=== PATIENT | female | born 1965 | race Caucasian/White ===

== ENCOUNTER 2018-04-28 13:29 | Emergency (ER) | payer MEDICARE, MEDICAID ==
[2018-04-28 14:19] VITALS: BP 145/64
--- NOTE | 2018-04-28 16:51 | EDM.PDOC ---
ED HPI GENERAL MEDICAL PROBLEM - General Chief Complaint: Neuro Symptoms/Deficits Stated Complaint: SEEING PEOPLE WHO ARE NOT THERE Time Seen by Provider: 04/28/18 14:34 Source of Information: Reports: Family History Limitations: Reports: No Limitations - History of Present Illness INITIAL COMMENTS - FREE TEXT/NARRATIVE: This lady is brought in by her sister. She lives at [facility]. Yesterday she was seeing people on the stairway who were not there. This is happened a couple of times in the past. She seemed a little bit disoriented this morning. Since she has had several brief episodes where she seemed confused area she's previously had head CTs. She's had good oral intake has been no fever. Her sister wonders if maybe she might have a UTI. She also wonders if this could be something like a TIA. There hasn't been any kind of weakness numbness facial drooping and slurred speech or anything of that nature. Left Knee Pain Score (Numeric/FACES): 5 - Related Data Allergies Allergy/AdvReac Type Severity Reaction Status Date / Time Penicillins Allergy Hives Verified 04/28/18 13:55 Home Meds: Home Meds Cetirizine [ZyrTEC] 10 mg PO DAILY 04/28/18 [History] Fluticasone Propionate 2 spray NS DAILY 04/28/18 [History] Krill Oil 500 mg PO BID 04/28/18 [History] Levothyroxine [Sythroid] 100 mcg PO DAILY 04/28/18 [History] Montelukast [Singulair] 10 mg PO DAILY 04/28/18 [History] Past Medical History HEENT History: Reports: Impaired Vision Genitourinary History: Reports: None Musculoskeletal History: Reports: Arthritis Neurological History: Reports: TIA Psychiatric History: Reports: Anxiety Endocrine/Metabolic History: Reports: Hypothyroidism, Obesity/BMI 30+ - Infectious Disease History Infectious Disease History: Reports: Chicken Pox - Past Surgical History Head Surgeries/Procedures: Reports: None HEENT Surgical History: Reports: Adenoidectomy, Tonsillectomy, Other (See Below) Other HEENT Surgeries/Procedures: ear surgery Female Surgical History: Reports: D&C Endocrine Surgical History: Reports: None Neurological Surgical History: Reports: None Musculoskeletal Surgical History: Reports: None Dermatological Surgical History: Reports: None Social & Family History - Tobacco Use Smoking Status *Q: Never Smoker Second Hand Smoke Exposure: No - Caffeine Use Caffeine Use: Reports: Coffee, Soda - Recreational Drug Use Recreational Drug Use: No ED ROS GENERAL - Review of Systems Review Of Systems: See Below Constitutional: Reports: No Symptoms HEENT: Reports: No Symptoms Respiratory: Reports: No Symptoms Cardiovascular: Reports: No Symptoms Endocrine: Reports: No Symptoms GI/Abdominal: Reports: No Symptoms : Reports: No Symptoms Musculoskeletal: Reports: No Symptoms Skin: Reports: No Symptoms Neurological: Reports: Other (See history of present illness) Psychiatric: Reports: No Symptoms ED EXAM, NEURO - Physical Exam Exam: See Below Exam Limited By: No Limitations General Appearance: Alert, No Apparent Distress (This lady is happy and smiling. She seems like she might have some mild mental retardation or developmental delay. She likes to talk.) Eye Exam: Bilateral Eye: EOMI, PERRL Ears: Other (A hearing aid on the left and there is a lot of dried cerumen in the ear. Both canals are narrowed) Nose: Normal Inspection Throat/Mouth: Normal Oropharynx Head Exam: Atraumatic Neck: Normal Inspection Respiratory/Chest: Lungs Clear Cardiovascular: Regular Rate, Rhythm GI/Abdominal: Non-Tender Neurological: Alert, Normal Mood/Affect, CN II-XII Intact, No Motor/Sensory Deficits, Other (Happy smiling and talkative. No confusion noted) Extremities: Normal Inspection Psychiatric: Normal Affect Skin Exam: Warm, Dry Course - Vital Signs Last Recorded V/S: Last Vital Signs Temp 35.8 C 04/28/18 13:48 Pulse 65 04/28/18 13:48 Resp 16 04/28/18 13:48 BP 145/64 H 04/28/18 13:48 Pulse Ox 100 04/28/18 13:48 - Orders/Labs/Meds Labs: Laboratory Tests 04/28/18 04/28/18 04/28/18 Range/Units 15:03 15:03 15:07 WBC 4.2 L (4.5-11.0) K/uL RBC 4.32 (3.30-5.50) M/uL Hgb 14.1 (12.0-15.0) g/dL Hct 41.8 (36.0-48.0) % MCV 97 (80-98) fL MCH 33 H (27-31) pg MCHC 34 (32-36) % Plt Count 304 (150-400) K/uL Neut % (Auto) 55 (36-66) % Lymph % (Auto) 31 (24-44) % Davison % (Auto) 11 H (2-6) % Eos % (Auto) 2 (2-4) % Baso % (Auto) 1 (0-1) % Sodium 140 (140-148) mmol/L Potassium 3.9 (3.6-5.2) mmol/L Chloride 104 (100-108) mmol/L Carbon Dioxide 28 (21-32) mmol/L Anion Gap 8.3 (5.0-14.0) mmol/L BUN 15 (7-18) mg/dL Creatinine 0.8 (0.6-1.0) mg/dL Est Cr Clr Drug Dosing 57.74 mL/min Estimated GFR (MDRD) > 60 (>60) Glucose 88 (74-106) mg/dL Calcium 8.9 (8.5-10.1) mg/dL Total Bilirubin 0.3 (0.2-1.0) mg/dL AST 21 (15-37) U/L ALT 34 (12-78) U/L Alkaline Phosphatase 69 (46-116) U/L Total Protein 6.7 (6.4-8.2) g/dL Albumin 3.3 L (3.4-5.0) g/dL Globulin 3.4 (2.3-3.5) g/dL Albumin/Globulin Ratio 1.0 L (1.2-2.2) Urine Color Yellow Urine Appearance Slightly cloudy Urine pH 7.0 (4.5-8.0) Ur Specific [place] 1.010 (1.008-1.030) Urine Protein Negative (NEGATIVE) mg/dL Urine Glucose (UA) Normal (NEGATIVE) mg/dL Urine Ketones Negative (NEGATIVE) mg/dL Urine Occult Blood Negative (NEGATIVE) Urine Nitrite Negative (NEGATIVE) Urine Bilirubin Negative (NEGATIVE) Urine Urobilinogen Normal (NORMAL) mg/dL Ur Leukocyte Esterase Moderate (NEGATIVE) Urine RBC 0-5 (0-5) Urine WBC 0-5 (0-5) Ur Epithelial Cells Not seen Amorphous Sediment Not seen Urine Bacteria Rare Urine Mucus Not seen - Re-Assessments/Exams Free Text/Narrative Re-Assessment/Exam: 04/28/18 16:50 All labs were noted. At this point I don't think any imaging is warranted. if she continues to hav sympoms then she should folow-up wih her dcto and maybe an MRI might be considered. Departure - Departure Time of Disposition: 16:51 Disposition: Home, Self-Care 01 Condition: Fair Clinical Impression: Confusion, hx of, without neuro findings - Discharge Information Referrals: Walt La MD [Primary Care Provider] - Additional Instructions: Continue all her usual medications. She should follow-up with her regular doctor early this coming week. If she continues to have these episodes her doctor decide to do further testing such as an MRI. No imaging of her brain was indicated in the emergency department.
== END 2018-04-28 16:59 | disposition home or self-care (01) ==
LOC: JP.ED 13:29
DX: R41.0 Disorientation, unspecified (principal); E03.9 Hypothyroidism, unspecified; F41.9 Anxiety disorder, unspecified; Z79.899 Other long term (current) drug therapy; Z88.0 Allergy status to penicillin
CPT/HCPCS: 36415; 80053; 81001; 85025; 99284

== ENCOUNTER 2019-01-06 12:33 | Inpatient (IN) | payer MEDICARE, MEDICAID ==
[2019-01-06] MEDS ORDERED: Sodium Chloride 0.9% 10 ML Syringe FLUSH PRN ×2 (13:06→14:45)
[2019-01-06] MEDS ORDERED: Ondansetron 4 MG Tab.DIS PO ONE (13:10)
--- NOTE | 2019-01-06 13:12 | EDM.PDOC ---
ED HPI GENERAL MEDICAL PROBLEM - General Chief Complaint: Respiratory Problem Stated Complaint: chest cold Time Seen by Provider: 01/06/19 12:55 Source of Information: Reports: Patient, RN, Other (staff from assisted) History Limitations: Reports: No Limitations, Other (Down's syndrome) - History of Present Illness INITIAL COMMENTS - FREE TEXT/NARRATIVE: 53 yo female from a local assisted was brought in for a cough associated with a couple episodes of syncope. Got her flu shot this past Monday. She developed a fever on that has recently gone away, but has passed out a couple of times recently when she goes from lying to either sitting or standing. Has vomited a couple of times with and without coughing. No diarrhea. No bloody emesis. Onset: Gradual Onset Date: 01/03/19 Duration: Day(s):, Waxing/Waning Location: Reports: Chest, Abdomen (some reported abdominal pain ? due to coughing) Quality: Reports: Dull Severity: Mild Improves with: Reports: Other (uncertain) Worsens with: Reports: Other (syncope with getting up.) Context: Reports: Other (see HPI) Associated Symptoms: Reports: Cough, Fever/Chills (now improved), Nausea/ Vomiting, Syncope. Denies: Headaches, Rash Treatments PRODUCT DEVELOPMENT CONSULTANT: Reports: Other (see below) (none) Abdomen Pain Score (Numeric/FACES): 4 - Related Data Allergies Allergy/AdvReac Type Severity Reaction Status Date / Time Penicillins Allergy Hives Verified 01/06/19 12:53 Home Meds: Home Meds Cetirizine [ZyrTEC] 10 mg PO DAILY 04/28/18 [History] Fluticasone Propionate 2 spray NS DAILY 04/28/18 [History] Krill Oil 500 mg PO BID 04/28/18 [History] Levothyroxine [Sythroid] 100 mcg PO DAILY 04/28/18 [History] Montelukast [Singulair] 10 mg PO DAILY 04/28/18 [History] Albuterol Sulfate [Proair Hfa] 2 puff IH QID 01/06/19 [History] Ascorbic Acid 500 mg PO BID 01/06/19 [History] Calc/D3/Mag/Zn/Educational Manager/Chandler/Oxly [Calcium 600 MG Plus Vit D] 1 tab PO BID 01/06/19 [History] Diclofenac Sodium [Voltaren] 100 gm TP ASDIRECTED 01/06/19 [History] Ibuprofen [Advil] 200 mg PO Q6HR PRN 01/06/19 [History] Magnesium Amino Acid Chelate [Magnesium] 84 mg PO BID 01/06/19 [History] Mineral Oil [Mineral Oil Heavy] 1 ml MC ASDIRECTED 01/06/19 [History] Multivit &Minerals/Ferrous Fum [Multivitamin Liquid] 1 tab-cap PO DAILY [History] Nystatin [Nystatin Crm] 1 appful TOP BID 01/06/19 [History] Triamcinolone Acetonide [Triamcinolone Acetonide 0.1% Crm] 1 dose TOP BID [History] diazePAM [Valium] 5 mg PO ASDIRECTED PRN 01/06/19 [History] Past Medical History HEENT History: Reports: Impaired Vision Gastrointestinal History: Reports: Chronic Constipation Genitourinary History: Reports: Urinary Incontinence Musculoskeletal History: Reports: Arthritis Neurological History: Reports: TIA Psychiatric History: Reports: Anxiety Endocrine/Metabolic History: Reports: Hypothyroidism - Infectious Disease History Infectious Disease History: Reports: Chicken Pox - Past Surgical History Head Surgeries/Procedures: Reports: None HEENT Surgical History: Reports: Adenoidectomy, Tonsillectomy, Other (See Below) Other HEENT Surgeries/Procedures: ear surgery GI Surgical History: Reports: None Female Surgical History: Reports: D&C Endocrine Surgical History: Reports: None Neurological Surgical History: Reports: None Musculoskeletal Surgical History: Reports: None Dermatological Surgical History: Reports: None Social & Family History - Tobacco Use Smoking Status *Q: Never Smoker Second Hand Smoke Exposure: No - Caffeine Use Caffeine Use: Reports: Coffee, Soda, Tea - Recreational Drug Use Recreational Drug Use: No ED ROS GENERAL - Review of Systems Review Of Systems: See Below Constitutional: Reports: Fever (now improved), Malaise HEENT: Reports: No Symptoms Respiratory: Reports: Shortness of Breath, Cough, Sputum (at times). Denies: Wheezing, Hemoptysis Cardiovascular: Reports: Dyspnea on Exertion, Lightheadedness (a times) GI/Abdominal: Reports: Abdominal Pain (intermittent), Nausea, Vomiting. Denies : Anorexia, Black Stool, Bloody Stool, Constipation, Diarrhea, Distension, Flatus, Hematemesis, Hematochezia, Melena : Reports: No Symptoms Musculoskeletal: Reports: No Symptoms Skin: Reports: No Symptoms Neurological: Reports: No Symptoms Psychiatric: Reports: No Symptoms ED EXAM, GENERAL - Physical Exam Exam: See Below Exam Limited By: No Limitations General Appearance: Alert, WD/WN, No Apparent Distress Eye Exam: Bilateral Eye: Normal Inspection Ears: Normal External Exam, Normal Canal, Hearing Grossly Normal, Normal TMs Ear Exam: Bilateral Ear: Auricle Normal, Canal Normal, TM normal Nose: Normal Inspection, No Blood Throat/Mouth: Normal Inspection, Normal Lips, Normal Oropharynx, Normal Voice, No Airway Compromise Head: Atraumatic, Normocephalic Neck: Normal Inspection Respiratory/Chest: No Respiratory Distress, Lungs Clear, Normal Breath Sounds, No Accessory Muscle Use Cardiovascular: Regular Rate, Rhythm, No Edema GI/Abdominal: Normal Bowel Sounds, Soft, Non-Tender, No Distention Back Exam: Normal Inspection. No: CVA Tenderness (R), CVA Tenderness (L) Extremities: Normal Inspection, Normal Range of Motion, Non-Tender, No Pedal Edema Neurological: Alert, Oriented, CN II-XII Intact, Normal Cognition, No Motor/ Sensory Deficits Psychiatric: Normal Affect, Normal Mood Skin Exam: Warm, Dry, Intact, Normal Color, No Rash Course - Vital Signs Text/Narrative:: Dr. Chapman called @ 1345h Last Recorded V/S: Last Vital Signs Temp 37.2 C 01/06/19 12:54 Pulse 75 01/06/19 12:54 Resp 23 H 01/06/19 12:54 BP 101/53 L 01/06/19 12:54 Pulse Ox 92 L 01/06/19 12:54 - Orders/Labs/Meds Orders: Active Orders 24 hr Category Date Time Status Chest 2V [CR] Stat Exams 01/06/19 13:06 Taken CULTURE BLOOD [BC] Stat Lab 01/06/19 13:42 Ordered CULTURE BLOOD [BC] Stat Lab 01/06/19 13:43 Ordered UA W/MICROSCOPIC [URIN] Stat Lab 01/06/19 13:06 Ordered Lactated Ringers [Ringers, Lactated] 1,000 ml Med 01/06/19 13:34 Active IV BOLUS Sodium Chloride 0.9% [Saline Flush] Med 01/06/19 13:06 Active 10 ml FLUSH ASDIRECTED PRN cefTRIAXone [Rocephin] 1 gm Med 01/06/19 13:48 Ordered Sodium Chloride 0.9% [Normal Saline] 50 ml IV ONETIME Saline Lock Insert [OM.PC] Routine Oth 01/06/19 13:06 Ordered Medication Orders Lactated Ringer's (Ringers, Lactated) 1,000 mls @ 1,000 mls/hr IV BOLUS ONE Stop: 01/06/19 14:33 Last Admin: 01/06/19 13:44 Dose: 1,000 mls/hr Sodium Chloride (Saline Flush) 10 ml FLUSH ASDIRECTED PRN PRN Reason: Keep Vein Open Last Admin: 01/06/19 13:16 Dose: 10 ml Labs: Laboratory Tests 01/06/19 01/06/19 Range/Units 13:14 13:14 WBC 11.7 H (4.5-11.0) K/uL RBC 4.03 (3.30-5.50) M/uL Hgb 13.0 (12.0-15.0) g/dL Hct 39.0 (36.0-48.0) % MCV 97 (80-98) fL MCH 32 H (27-31) pg MCHC 33 (32-36) % Plt Count 287 (150-400) K/uL Sodium 134 L (140-148) mmol/L Potassium 3.8 (3.6-5.2) mmol/L Chloride 98 L (100-108) mmol/L Carbon Dioxide 25 (21-32) mmol/L Anion Gap 14.8 H (5.0-14.0) mmol/L BUN 11 (7-18) mg/dL Creatinine 1.1 H (0.6-1.0) mg/dL Est Cr Clr Drug Dosing 41.51 mL/min Estimated GFR (MDRD) 52 L (>60) Glucose 96 (74-106) mg/dL Calcium 8.3 L (8.5-10.1) mg/dL Meds: Medications Generic Name Dose Route Start Last Admin Trade Name Freq PRN Reason Stop Dose Admin Lactated Ringer's 1,000 mls @ 1,000 mls/hr 01/06/19 13:34 01/06/19 13:44 Ringers, Lactated IV 01/06/19 14:33 1,000 mls/hr BOLUS ONE Administration Sodium Chloride 10 ml 01/06/19 13:06 01/06/19 13:16 Saline Flush FLUSH 10 ml ASDIRECTED PRN Administration Keep Vein Open Discontinued Medications Generic Name Dose Route Start Last Admin Trade Name Freq PRN Reason Stop Dose Admin Ondansetron HCl 4 mg 01/06/19 13:10 01/06/19 13:16 Zofran Odt PO 01/06/19 13:11 4 mg ONETIME ONE Administration - Radiology Interpretation Free Text/Narrative:: CXR-pneumonia Departure - Departure Time of Disposition: 14:00 Disposition: Admitted As Inpatient 66 Condition: Fair Clinical Impression: Pneumonia Qualifiers: Pneumonia type: due to unspecified organism Laterality: bilateral Lung location : lower lobe of lung Qualified Code(s): J18.1 - Lobar pneumonia, unspecified organism - Discharge Information *PRESCRIPTION DRUG MONITORING PROGRAM REVIEWED*: No *COPY OF PRESCRIPTION DRUG MONITORING REPORT IN PATIENT SOPHIE: No Referrals: Walt La MD [Primary Care Provider] - Forms: ED Department Discharge - My Orders Last 24 Hours: My Active Orders 01/06/19 13:06 Chest 2V [CR] Stat UA W/MICROSCOPIC [URIN] Stat Sodium Chloride 0.9% [Saline Flush] 10 ml FLUSH ASDIRECTED PRN Saline Lock Insert [OM.PC] Routine 01/06/19 13:34 Lactated Ringers [Ringers, Lactated] 1,000 ml IV BOLUS 01/06/19 13:42 CULTURE BLOOD [BC] Stat 01/06/19 13:43 CULTURE BLOOD [BC] Stat 01/06/19 13:48 cefTRIAXone [Rocephin] 1 gm Sodium Chloride 0.9% [Normal Saline] 50 ml IV ONETIME - Assessment/Plan Last 24 Hours: My Active Orders 01/06/19 13:06 Chest 2V [CR] Stat UA W/MICROSCOPIC [URIN] Stat Sodium Chloride 0.9% [Saline Flush] 10 ml FLUSH ASDIRECTED PRN Saline Lock Insert [OM.PC] Routine 01/06/19 13:34 Lactated Ringers [Ringers, Lactated] 1,000 ml IV BOLUS 01/06/19 13:42 CULTURE BLOOD [BC] Stat 01/06/19 13:43 CULTURE BLOOD [BC] Stat 01/06/19 13:48 cefTRIAXone [Rocephin] 1 gm Sodium Chloride 0.9% [Normal Saline] 50 ml IV ONETIME
[2019-01-06] MEDS ORDERED: Lactated Ringers 1,000 ML IV ONE (13:34)
[2019-01-06] MEDS ORDERED: cefTRIAXone 1 GM in Sodium Chloride 0.9% 50 ML IV ONE (13:48)
--- NOTE | 2019-01-06 14:03 | CRLCR ---
Clinical INDICATION: Cough. Hypoxia. COMPARISON: 12/24/2010. FINDINGS: There are extensive alveolar infiltrates within both lower lungs and within the right mid lung likely representing pneumonia. The heart is normal in size. The pulmonary vasculature is normal. There may be a trace pleural fluid on the left. The bony thorax appears grossly intact. There is mild lumbar scoliosis convex left. IMPRESSION: Extensive alveolar infiltrates within both lower lungs and within the right mid lung most likely representing pneumonia. Radiographic followup to total resolution is recommended. Dictated by Alberto Stein MD @ Jan 06 2019 1:58PM Signed by Dr. Alberto Stein @ Jan 06 2019 2:01PM
[2019-01-06] MEDS ORDERED: Polyethylene Glycol 3350 Powder 17 GM Packet PO PRN (14:45)
[2019-01-06] MEDS ORDERED: Ondansetron 4 MG/2 ML SDV IV PRN (14:45)
--- NOTE | 2019-01-06 14:54 | PCM.HP.2 ---
H&P History of Present Illness - General Date of Service: 01/06/19 Admit Problem/Dx: Admission Diagnosis/Problem Admission Diagnosis/Problem Pneumonia Source of Information: Patient, Family, Provider, RN Notes Reviewed History Limitations: Reports: Altered Mental Status (Down's syndrome, early dementia) - History of Present Illness Initial Comments - Free Text/Narative: Ms. Shepard is a 53-year-old woman who was admitted through the emergency department with fever, cough, shortness of breath, weakness, secondary to bilateral pneumonia. Ms. Shepard has a history of Down syndrome and has developed early Alzheimer's dementia. She is unable to provide a meaningful history concerning recent symptoms or review of systems. Most of history obtained from her sister and caregiver. She became ill approximately 3 days ago and did have fever with chills and sweats. She is experienced a cough and progressive shortness of breath. Today was noted to be more lethargic and weak with nausea and vomiting. On evaluation in the emergency department chest x-ray documents bilateral infiltrates. White blood cell count is modestly elevated and she has a mild acidosis likely secondary to dehydration. Abdomen Pain Score (Numeric/FACES): 4 - Related Data Allergies/Adverse Reactions: Allergies Allergy/AdvReac Type Severity Reaction Status Date / Time Penicillins Allergy Hives Verified 01/06/19 12:53 Home Medications: Home Meds Cetirizine [ZyrTEC] 10 mg PO DAILY 04/28/18 [History] Fluticasone Propionate 2 spray NS DAILY 04/28/18 [History] Krill Oil 500 mg PO BID 04/28/18 [History] Levothyroxine [Sythroid] 100 mcg PO DAILY 04/28/18 [History] Montelukast [Singulair] 10 mg PO DAILY 04/28/18 [History] Albuterol Sulfate [Proair Hfa] 2 puff IH QID 01/06/19 [History] Ascorbic Acid 500 mg PO BID 01/06/19 [History] Calc/D3/Mag/Zn/Communications Project Manager/[place] [Calcium 600 MG Plus Vit D] 1 tab PO BID 01/06/19 [History] Diclofenac Sodium [Voltaren] 100 gm TP ASDIRECTED 01/06/19 [History] Ibuprofen [Advil] 200 mg PO Q6HR PRN 01/06/19 [History] Magnesium Amino Acid Chelate [Magnesium] 84 mg PO BID 01/06/19 [History] Mineral Oil [Mineral Oil Heavy] 1 ml MC ASDIRECTED 01/06/19 [History] Multivit &Minerals/Ferrous Fum [Multivitamin Liquid] 1 tab-cap PO DAILY [History] Nystatin [Nystatin Crm] 1 appful TOP BID 01/06/19 [History] Triamcinolone Acetonide [Triamcinolone Acetonide 0.1% Crm] 1 dose TOP BID [History] diazePAM [Valium] 5 mg PO ASDIRECTED PRN 01/06/19 [History] Past Medical History HEENT History: Reports: Impaired Vision Gastrointestinal History: Reports: Chronic Constipation Genitourinary History: Reports: Urinary Incontinence Musculoskeletal History: Reports: Arthritis Neurological History: Reports: TIA Psychiatric History: Reports: Anxiety Endocrine/Metabolic History: Reports: Hypothyroidism - Infectious Disease History Infectious Disease History: Reports: Chicken Pox - Past Surgical History Head Surgeries/Procedures: Reports: None HEENT Surgical History: Reports: Adenoidectomy, Tonsillectomy, Other (See Below) Other HEENT Surgeries/Procedures: ear surgery GI Surgical History: Reports: None Female Surgical History: Reports: D&C Endocrine Surgical History: Reports: None Neurological Surgical History: Reports: None Musculoskeletal Surgical History: Reports: None Dermatological Surgical History: Reports: None Social & Family History - Tobacco Use Smoking Status *Q: Never Smoker Second Hand Smoke Exposure: No - Caffeine Use Caffeine Use: Reports: Coffee, Soda, Tea - Recreational Drug Use Recreational Drug Use: No H&P Review of Systems - Review of Systems: Review Of Systems: Unable To Obtain (Down's syndrome, early dementia) Exam - Exam Exam: See Below - Vital Signs Vital Signs: Last Vital Signs Temp 99.0 F 01/06/19 12:54 Pulse 75 01/06/19 12:54 Resp 23 H 01/06/19 12:54 BP 101/53 L 01/06/19 12:54 Pulse Ox 92 L 01/06/19 12:54 Weight: 139 lb 15.896 oz - Exam Quality Assessment: DVT Prophylaxis. No: Supplemental Oxygen General: Lethargic HEENT: Conjunctiva Clear, Hearing Intact, Normal Nasal Septum, Posterior Pharynx Clear, Pupils Equal. No: Mucosa Moist & [place] Neck: Supple, Trachea Midline, +2 Carotid Pulse wo Bruit Lungs: Decreased Breath Sounds, Rales, Rhonchi. No: Crackles, Rub Cardiovascular: Regular Rate, Regular Rhythm, Normal S1, Normal S2. No: Systolic Murmur, Diastolic Murmur GI/Abdominal Exam: Soft, Non-Tender, No Organomegaly, No Distention Extremities: Non-Tender, No Pedal Edema Skin: Warm, Dry, Intact Neurological: Cranial Nerves Intact, Strength Equal Bilateral, Normal Speech, Normal Tone, Sensation Intact. No: Focal Deficit Neuro Extensive - Mental Status: Alert, Normal Mood/Affect, Memory Loss-Remote Events, Memory Loss-Recent Events. No: Oriented x3, Normal Cognition, Memory Intact - Patient Data Lab Results Last 24 hrs: Laboratory Results - last 24 hr 01/06/19 01/06/19 Range/Units 13:14 13:14 WBC 11.7 H (4.5-11.0) K/uL RBC 4.03 (3.30-5.50) M/uL Hgb 13.0 (12.0-15.0) g/dL Hct 39.0 (36.0-48.0) % MCV 97 (80-98) fL MCH 32 H (27-31) pg MCHC 33 (32-36) % Plt Count 287 (150-400) K/uL Sodium 134 L (140-148) mmol/L Potassium 3.8 (3.6-5.2) mmol/L Chloride 98 L (100-108) mmol/L Carbon Dioxide 25 (21-32) mmol/L Anion Gap 14.8 H (5.0-14.0) mmol/L BUN 11 (7-18) mg/dL Creatinine 1.1 H (0.6-1.0) mg/dL Est Cr Clr Drug Dosing 41.51 mL/min Estimated GFR (MDRD) 52 L (>60) Glucose 96 (74-106) mg/dL Calcium 8.3 L (8.5-10.1) mg/dL Result Diagrams: 01/06/19 13:14 01/06/19 13:14 *Q Meaningful Use (ADM) - VTE Risk Assess *Q Each Risk Factor Represents 1 Point: Age 41 - 59 years, Obesity ( BMI > 25 kg/m2 ) Total Score 1 Point Risk Factors: 2 Each Risk Factor Represents 2 Points: None Total Score 2 Point Risk Factors: 0 Each Risk Factor Represents 3 Points: None Total Score 3 Point Risk Factors: 0 Each Risk Factor Represents 5 Points: None Total Score 5 Point Risk Factors: 0 Venous Thromboembolism Risk Factor Score *Q: 2 Problem List Initiated/Reviewed/Updated: Yes Orders Last 24hrs: Active Orders 24 hr Category Date Time Status Patient Status [ADT] Routine ADT 01/06/19 14:45 Active Ambulate [RC] QID Care 01/06/19 14:45 Active Height and Weight [RC] DAILY Care 01/06/19 14:45 Active Intake and Output [RC] QSHIFT Care 01/06/19 14:45 Active Notify Provider Vital Signs [RC] ASDIRECTED Care 01/06/19 14:45 Active Oxygen Therapy [RC] PRN Care 01/06/19 14:45 Active Peripheral IV Care [RC] . DIRECTED Care 01/06/19 14:45 Active Pulse Oximetry [RC] CONTINUOUS Care 01/06/19 14:45 Active RT Aerosol Therapy [RC] ASDIRECTED Care 01/06/19 14:45 Active Up With Assistance [RC] ASDIRECTED Care 01/06/19 14:45 Active Up to Chair [RC] QID Care 01/06/19 14:45 Active VTE/DVT Education [RC] Per Unit Routine Care 01/06/19 14:45 Active Vital Signs [RC] Q4H Care 01/06/19 14:45 Active Regular Diet [DIET] Diet 01/06/19 Lunch Active BASIC METABOLIC PANEL,BMP [CHEM] AM Lab 01/07/19 05:11 Ordered CBC WITH AUTO DIFF [HEME] AM Lab 01/07/19 05:11 Ordered CULTURE BLOOD [BC] Stat Lab 01/06/19 13:45 Received CULTURE BLOOD [BC] Stat Lab 01/06/19 13:55 Received CULTURE RESPIRATORY + SMEAR [RM] Stat Lab 01/06/19 14:45 Ordered UA W/MICROSCOPIC [URIN] Stat Lab 01/06/19 13:06 Ordered Acetaminophen [Tylenol] Med 01/06/19 14:45 Ordered 650 mg PO Q4H PRN Albuterol [Proventil Neb Soln] Med 01/06/19 14:45 Ordered 2.5 mg NEB Q4H PRN Albuterol/Ipratropium [DuoNeb 3.0-0.5 MG/3 ML] Med 01/06/19 16:00 Ordered 3 ml NEB QID Azithromycin [Zithromax] 500 mg Med 01/06/19 14:45 Ordered Sodium Chloride 0.9% [Normal Saline] 250 ml IV Q24H Cetirizine [ZyrTEC] Med 01/07/19 09:00 Ordered 10 mg PO DAILY Enoxaparin [Lovenox] Med 01/06/19 14:45 Ordered 40 mg SUBCUT DAILY Fluticasone Propionate [Fluticasone Propionate] Med 01/07/19 09:00 Ordered 2 spray NS DAILY Lactobacillus Rhamnosus GG [Culturelle] Med 01/06/19 15:00 Ordered 1 cap PO BID Levothyroxine [Synthroid] Med 01/07/19 09:00 Ordered 100 mcg PO DAILY Magnesium Amino Acid Chelate [Magnesium] Med 01/06/19 21:00 Ordered 84 mg PO BID Montelukast [Singulair] Med 01/07/19 09:00 Ordered 10 mg PO DAILY Nystatin [Nystatin Crm] Med 01/06/19 21:00 Ordered 1 appful TOP BID Ondansetron [Zofran] Med 01/06/19 14:45 Ordered 4 mg IV Q4H PRN Polyethylene Glycol 3350 [MiraLAX] Med 01/06/19 14:45 Ordered 17 gm PO DAILY PRN Sodium Chloride 0.9% @ 100 MLS/HR(1000ml) Med 01/06/19 14:45 Ordered Sodium Chloride 0.9% [Normal Saline] 1,000 ml IV ASDIRECTED Sodium Chloride 0.9% [Saline Flush] Med 01/06/19 14:45 Ordered 10 ml FLUSH ASDIRECTED PRN Triamcinolone Acetonide [Triamcinolone Acetonide 0.1% Med 01/06/19 21:00 Ordered Crm] 1 dose TOP BID cefTRIAXone [Rocephin] 1 gm Med 01/06/19 14:45 Ordered Sodium Chloride 0.9% [Normal Saline] 50 ml IV Q24H Peripheral IV Insertion Adult [OM.PC] Routine Oth 01/06/19 14:45 Ordered Resuscitation Status Routine Resus Stat 01/06/19 14:17 Ordered Medication Orders Acetaminophen (Tylenol) 650 mg PO Q4H PRN PRN Reason: Pain (Mild 1-3)/fever Albuterol (Proventil Neb Soln) 2.5 mg NEB Q4H PRN PRN Reason: Shortness Of Breath/wheezing Albuterol/Ipratropium (Duoneb 3.0-0.5 Mg/3 Ml) 3 ml NEB QID [facility] Cetirizine HCl (Zyrtec) 10 mg PO DAILY [facility] Enoxaparin Sodium (Lovenox) 40 mg SUBCUT DAILY [facility] Azithromycin 500 mg/ Sodium (Chloride) 250 mls @ 250 mls/hr IV Q24H [facility] Ceftriaxone Sodium 1 gm/ (Sodium Chloride) 50 mls @ 100 mls/hr IV Q24H [facility] Sodium Chloride (Normal Saline) 1,000 mls @ 100 mls/hr IV ASDIRECTED [facility] Lactobacillus Rhamnosus (Culturelle) 1 cap PO BID [facility] Levothyroxine Sodium (Synthroid) 100 mcg PO DAILY [facility] Montelukast Sodium (Singulair) 10 mg PO DAILY [facility] Non-Formulary Medication (Fluticasone Propionate [Fluticasone Propionate]) 2 spray NS DAILY [facility] Non-Formulary Medication (Magnesium Amino Acid Chelate [Magnesium]) 84 mg PO BID [facility] Nystatin (Nystatin Crm) gm TOP BID [facility] Ondansetron HCl (Zofran) 4 mg IV Q4H PRN PRN Reason: Nausea/Vomiting Polyethylene Glycol (Miralax) 17 gm PO DAILY PRN PRN Reason: Constipation Sodium Chloride (Saline Flush) 10 ml FLUSH ASDIRECTED PRN PRN Reason: Keep Vein Open Triamcinolone Acetonide (Triamcinolone Acetonide 0.1% Crm) gm TOP BID [facility] Assessment/Plan Comment:: ASSESSMENT AND PLAN BILATERAL PNEUMONIA-symptoms present for 3 days including fever, cough, and shortness of breath. Modest elevation in white blood cell count, bilateral infiltrates noted on chest x-ray. History of underlying asthma which has been relatively mild. -Supplemental oxygen as needed -Blood and sputum cultures pending -Nebulizer therapy with albuterol and duo nebs -Continuous pulse oximeter -IV azithromycin and Rocephin pending culture results -IV fluids for hydration DOWN'S SYNDROME/EARLY DEMENTIA MAINTENANCE ISSUES -DVT prophylaxis; Lovenox 40 mg subcutaneous daily -GI prophylaxis; not indicated -Russell catheter; not indicated -Nutrition; regular diet -Nicotine dependence; not required CODE STATUS-FULL CODE ADMISSION STATUS-patient will be admitted to inpatient status, expect at least a 2 night hospital stay for evaluation and management of problems as outlined above. At the time of this admission I do not reasonably expected evaluation and management of this problem will require more than a 96 hour hospital stay. DISPOSITION-anticipate discharge to home after the hospital stay. PRIMARY CARE PROVIDER-Dr. La - Mortality Measure Prognosis:: Good
[2019-01-06] MEDS: Albuterol/Ipratropium 3.0-0.5 MG/3 ML Neb Soln NEB SCH ×2 (15:17→20:27)
[2019-01-06] MEDS: Enoxaparin 40 MG/0.4 ML Syringe SUBCUT SCH (15:18)
[2019-01-06] MEDS: Lactobacillus Rhamnosus GG (Probiotic) Cap PO SCH ×2 (15:18→20:28)
[2019-01-06] MEDS: Azithromycin 500 MG in Sodium Chloride 0.9% 250 ML IV SCH (15:18)
[2019-01-06] MEDS: Acetaminophen 325 MG Tab PO PRN (17:45)
[2019-01-06] MEDS: Sodium Chloride 0.9% 1,000 ML IV SCH (19:08)
[2019-01-06] MEDS: Ibuprofen 400 MG Tab PO PRN (20:27)
[2019-01-06] MEDS: Magnesium Oxide 400 MG Tab PO SCH (20:28)
[2019-01-06] MEDS: Nystatin Crm 15 GM Tube TOP SCH (20:36)
[2019-01-06] MEDS: Triamcinolone Acetonide 0.1% Crm 15 GM Tube TOP SCH (20:36)
[2019-01-07] MEDS: Albuterol 0.083% 2.5 MG/3 ML Neb Soln NEB PRN (03:38)
[2019-01-07] MEDS: Acetaminophen 325 MG Tab PO PRN ×3 (04:46→20:14)
[2019-01-07] MEDS: Sodium Chloride 0.9% 1,000 ML IV SCH ×2 (04:47→15:49)
[2019-01-07] MEDS: Albuterol/Ipratropium 3.0-0.5 MG/3 ML Neb Soln NEB SCH ×4 (07:06→20:14)
[2019-01-07] MEDS: Levothyroxine 100 MCG Tab PO SCH (07:40)
[2019-01-07] MEDS: Magnesium Oxide 400 MG Tab PO SCH ×2 (08:29→20:14)
[2019-01-07] MEDS: Lactobacillus Rhamnosus GG (Probiotic) Cap PO SCH ×2 (08:29→20:14)
[2019-01-07] MEDS: Cetirizine 10 MG Tab PO SCH (08:29)
[2019-01-07] MEDS: Montelukast 10 MG Tab PO SCH (08:30)
[2019-01-07] MEDS: Fluticasone Propionate Nasal Spray 16 GM Bottle NASBOTH SCH (08:30)
[2019-01-07] MEDS: Nystatin Crm 15 GM Tube TOP SCH ×2 (08:32→20:20)
[2019-01-07] MEDS: Triamcinolone Acetonide 0.1% Crm 15 GM Tube TOP SCH ×2 (08:32→20:20)
[2019-01-07] MEDS ORDERED: Potassium Chloride 20 MEQ Tab.ER PO ONE (10:00)
--- NOTE | 2019-01-07 10:13 | PCM.PN ---
- General Info Date of Service: 01/07/19 Subjective Update: No acute events overnight. She did have a fever last night but her temperature is normal today. She is complaining of some mild crampy pain in her left calf. She is complaining of some discomfort in her chest with deep breathing. Cough is mild. Appetite has been acceptable. Cultures are negative so far. Potassium is a little low today. Functional Status: Reports: Pain Controlled, Tolerating Diet - Review of Systems General: Reports: Fever, Weakness Pulmonary: Reports: Shortness of Breath, Pleuritic Chest Pain Musculoskeletal: Reports: Leg Pain - Patient Data Vitals - Most Recent: Last Vital Signs Temp 36.9 C 01/07/19 07:30 Pulse 81 01/07/19 07:30 Resp 20 01/07/19 07:30 BP 98/44 L 01/07/19 07:30 Pulse Ox 98 01/07/19 07:30 Weight - Most Recent: 63.5 kg I&O - Last 24 Hours: Intake & Output 01/06/19 01/07/19 01/07/19 22:59 06:59 14:59 Intake Total 2099 1567 590 Output Total 100 200 200 Balance 1998 1367 390 Lab Results Last 24 Hours: Laboratory Results - last 24 hr 01/06/19 01/06/19 01/06/19 Range/Units 13:14 13:14 14:48 WBC 11.7 H (4.5-11.0) K/uL RBC 4.03 (3.30-5.50) M/uL Hgb 13.0 (12.0-15.0) g/dL Hct 39.0 (36.0-48.0) % MCV 97 (80-98) fL MCH 32 H (27-31) pg MCHC 33 (32-36) % Plt Count 287 (150-400) K/uL Add Manual Diff Neutrophils % (Manual) (36-66) % Band Neutrophils % (5-11) % Lymphocytes % (Manual) (24-44) % Monocytes % (Manual) (2-6) % Sodium 134 L (140-148) mmol/L Potassium 3.8 (3.6-5.2) mmol/L Chloride 98 L (100-108) mmol/L Carbon Dioxide 25 (21-32) mmol/L Anion Gap 14.8 H (5.0-14.0) mmol/L BUN 11 (7-18) mg/dL Creatinine 1.1 H (0.6-1.0) mg/dL Est Cr Clr Drug Dosing 41.51 mL/min Estimated GFR (MDRD) 52 L (>60) Glucose 96 (74-106) mg/dL Calcium 8.3 L (8.5-10.1) mg/dL Urine Color Yellow (YELLOW) Urine Appearance Clear (CLEAR) Urine pH 5.5 (5.0-8.0) Ur Specific [place] 1.015 (1.008-1.030) Urine Protein 30 H (NEGATIVE) mg/dL Urine Glucose (UA) Negative (NEGATIVE) mg/dL Urine Ketones Negative (NEGATIVE) mg/dL Urine Occult Blood Negative (NEGATIVE) Urine Nitrite Negative (NEGATIVE) Urine Bilirubin Negative (NEGATIVE) Urine Urobilinogen 0.2 (0.2-1.0) EU/dL Ur Leukocyte Esterase Small H (NEGATIVE) Urine RBC 0-5 (0-5) Urine WBC 10-20 H (0-5) Ur Epithelial Cells Moderate Amorphous Sediment Not seen Urine Bacteria Few Urine Mucus Many Urine Other 01/07/19 01/07/19 Range/Units 04:20 04:20 WBC 12.7 H (4.5-11.0) K/uL RBC 3.56 (3.30-5.50) M/uL Hgb 11.7 L (12.0-15.0) g/dL Hct 34.7 L (36.0-48.0) % MCV 98 (80-98) fL MCH 33 H (27-31) pg MCHC 34 (32-36) % Plt Count 253 (150-400) K/uL Add Manual Diff Yes Neutrophils % (Manual) 65 (36-66) % Band Neutrophils % 23 H (5-11) % Lymphocytes % (Manual) 7 L (24-44) % Monocytes % (Manual) 5 (2-6) % Sodium 134 L (140-148) mmol/L Potassium 3.4 L (3.6-5.2) mmol/L Chloride 100 (100-108) mmol/L Carbon Dioxide 25 (21-32) mmol/L Anion Gap 12.4 (5.0-14.0) mmol/L BUN 13 (7-18) mg/dL Creatinine 1.0 (0.6-1.0) mg/dL Est Cr Clr Drug Dosing 45.66 mL/min Estimated GFR (MDRD) 58 L (>60) Glucose 109 H (74-106) mg/dL Calcium 7.5 L (8.5-10.1) mg/dL Urine Color (YELLOW) Urine Appearance (CLEAR) Urine pH (5.0-8.0) Ur Specific [place] (1.008-1.030) Urine Protein (NEGATIVE) mg/dL Urine Glucose (UA) (NEGATIVE) mg/dL Urine Ketones (NEGATIVE) mg/dL Urine Occult Blood (NEGATIVE) Urine Nitrite (NEGATIVE) Urine Bilirubin (NEGATIVE) Urine Urobilinogen (0.2-1.0) EU/dL Ur Leukocyte Esterase (NEGATIVE) Urine RBC (0-5) Urine WBC (0-5) Ur Epithelial Cells Amorphous Sediment Urine Bacteria Urine Mucus Urine Other Med Orders - Current: Current Medications Acetaminophen (Tylenol) 650 mg PO Q4H PRN PRN Reason: Pain (Mild 1-3)/fever Last Admin: 01/07/19 04:46 Dose: 650 mg Albuterol (Proventil Neb Soln) 2.5 mg NEB Q4H PRN PRN Reason: Shortness Of Breath/wheezing Last Admin: 01/07/19 03:38 Dose: 2.5 mg Albuterol/Ipratropium (Duoneb 3.0-0.5 Mg/3 Ml) 3 ml NEB QIDRT COUNTS INCLUDE 234 BEDS AT THE [facility] Last Admin: 01/07/19 07:06 Dose: 3 ml Cetirizine HCl (Zyrtec) 10 mg PO DAILY COUNTS INCLUDE 234 BEDS AT THE [facility] Last Admin: 01/07/19 08:29 Dose: 10 mg Enoxaparin Sodium (Lovenox) 40 mg SUBCUT Q24H COUNTS INCLUDE 234 BEDS AT THE [facility] Last Admin: 01/06/19 15:18 Dose: 40 mg Fluticasone Propionate (Flonase) 0 gm NASBOTH DAILY COUNTS INCLUDE 234 BEDS AT THE [facility] Last Admin: 01/07/19 08:30 Dose: 1 applic Azithromycin 500 mg/ Sodium (Chloride) 250 mls @ 250 mls/hr IV Q24H COUNTS INCLUDE 234 BEDS AT THE [facility] Last Admin: 01/06/19 15:18 Dose: 250 mls/hr Ceftriaxone Sodium 1 gm/ (Sodium Chloride) 50 mls @ 100 mls/hr IV Q24H COUNTS INCLUDE 234 BEDS AT THE [facility] Ibuprofen (Motrin) 400 mg PO Q6H PRN PRN Reason: Fever Last Admin: 01/06/19 20:27 Dose: 400 mg Lactobacillus Rhamnosus (Culturelle) 1 cap PO BID COUNTS INCLUDE 234 BEDS AT THE [facility] Last Admin: 01/07/19 08:29 Dose: 1 cap Levothyroxine Sodium (Synthroid) 100 mcg PO DAILY@0730 COUNTS INCLUDE 234 BEDS AT THE [facility] Last Admin: 01/07/19 07:40 Dose: 100 mcg Magnesium Oxide (Magnesium Oxide) 400 mg PO BID COUNTS INCLUDE 234 BEDS AT THE [facility] Last Admin: 01/07/19 08:29 Dose: 400 mg Montelukast Sodium (Singulair) 10 mg PO DAILY COUNTS INCLUDE 234 BEDS AT THE [facility] Last Admin: 01/07/19 08:30 Dose: 10 mg Nystatin (Nystatin Crm) 0 gm TOP BID COUNTS INCLUDE 234 BEDS AT THE [facility] Last Admin: 01/07/19 08:32 Dose: Not Given Ondansetron HCl (Zofran) 4 mg IV Q4H PRN PRN Reason: Nausea/Vomiting Polyethylene Glycol (Miralax) 17 gm PO DAILY PRN PRN Reason: Constipation Sodium Chloride (Saline Flush) 10 ml FLUSH ASDIRECTED PRN PRN Reason: Keep Vein Open Triamcinolone Acetonide (Triamcinolone Acetonide 0.1% Crm) 0 gm TOP BID COUNTS INCLUDE 234 BEDS AT THE [facility] Last Admin: 01/07/19 08:32 Dose: Not Given Discontinued Medications Lactated Ringer's (Ringers, Lactated) 1,000 mls @ 1,000 mls/hr IV BOLUS ONE Stop: 01/06/19 14:33 Last Admin: 01/06/19 13:44 Dose: 1,000 mls/hr Ceftriaxone Sodium 1 gm/ (Sodium Chloride) 50 mls @ 100 mls/hr IV ONETIME ONE Stop: 01/06/19 14:17 Last Admin: 01/06/19 14:00 Dose: 100 mls/hr Sodium Chloride (Normal Saline) 1,000 mls @ 100 mls/hr IV ASDIRECTED COUNTS INCLUDE 234 BEDS AT THE [facility] Last Admin: 01/07/19 04:47 Dose: 100 mls/hr Ondansetron HCl (Zofran Odt) 4 mg PO ONETIME ONE Stop: 01/06/19 13:11 Last Admin: 01/06/19 13:16 Dose: 4 mg Potassium Chloride (Klor-Con M20) 40 meq PO ONETIME ONE Stop: 01/07/19 10:01 Sodium Chloride (Saline Flush) 10 ml FLUSH ASDIRECTED PRN PRN Reason: Keep Vein Open Last Admin: 01/06/19 13:16 Dose: 10 ml - Exam Quality Assessment: Supplemental Oxygen General: Alert, Cooperative, No Acute Distress Lungs: Normal Respiratory Effort, Decreased Breath Sounds (both bases), Rhonchi (mild diffuse). No: Wheezing Cardiovascular: Regular Rate, Regular Rhythm GI/Abdominal Exam: Normal Bowel Sounds, Soft, Non-Tender, No Distention Extremities: No Pedal Edema. No: Increased Warmth Skin: Warm, Dry Psy/Mental Status: Alert, Normal Affect - Problem List Review Problem List Initiated/Reviewed/Updated: Yes - My Orders Last 24 Hours: My Active Orders 01/07/19 10:30 Sodium Chloride 0.9% [Normal Saline] 1,000 ml IV ASDIRECTED 01/08/19 05:00 BASIC METABOLIC PANEL,BMP [CHEM] Timed CBC W/O DIFF,HEMOGRAM [HEME] Timed (1) - Plan Plan:: ASSESSMENT AND PLAN BILATERAL PNEUMONIA - complicated by acute respiratory failure with hypoxia. White count stable. Temperature better today. Clinically feeling better. Cultures negative so far. -Supplemental oxygen as needed -Follow-up Blood and sputum cultures -Nebulizer therapy with albuterol and duo nebs -Continuous pulse oximeter -Continue ceftriaxone and azithromycin -Gentle IV fluids for hydration DOWN'S SYNDROME/EARLY DEMENTIA MAINTENANCE ISSUES -DVT prophylaxis; Lovenox 40 mg subcutaneous daily -GI prophylaxis; not indicated -Russell catheter; not indicated -Nutrition; regular diet DISPOSITION - [facility]. Alexey Alvares MD
[2019-01-07] MEDS: cefTRIAXone 1 GM in Sodium Chloride 0.9% 50 ML IV SCH (14:05)
[2019-01-07] MEDS: Azithromycin 500 MG in Sodium Chloride 0.9% 250 ML IV SCH (16:19)
[2019-01-07] MEDS: Enoxaparin 40 MG/0.4 ML Syringe SUBCUT SCH (16:19)
[2019-01-08] MEDS: Albuterol/Ipratropium 3.0-0.5 MG/3 ML Neb Soln NEB SCH ×4 (07:01→21:49)
[2019-01-08] MEDS: Levothyroxine 100 MCG Tab PO SCH (07:50)
[2019-01-08] MEDS: Acetaminophen 325 MG Tab PO PRN ×2 (09:04→18:31)
[2019-01-08] MEDS: Magnesium Oxide 400 MG Tab PO SCH ×2 (09:05→21:49)
[2019-01-08] MEDS: Fluticasone Propionate Nasal Spray 16 GM Bottle NASBOTH SCH (09:05)
[2019-01-08] MEDS: Cetirizine 10 MG Tab PO SCH (09:05)
[2019-01-08] MEDS: Montelukast 10 MG Tab PO SCH (09:05)
[2019-01-08] MEDS: Lactobacillus Rhamnosus GG (Probiotic) Cap PO SCH ×2 (09:05→21:48)
[2019-01-08] MEDS: Nystatin Crm 15 GM Tube TOP SCH ×2 (09:06→22:01)
[2019-01-08] MEDS: Triamcinolone Acetonide 0.1% Crm 15 GM Tube TOP SCH ×2 (09:06→22:01)
[2019-01-08] MEDS: Sodium Chloride 0.9% 1,000 ML IV SCH (11:55)
--- NOTE | 2019-01-08 12:47 | PCM.PN ---
- General Info Date of Service: 01/08/19 Subjective Update: There were no acute events overnight. No fever overnight. White blood cell count has normalized. Still requiring supplemental oxygen but down to 2 L. Still coughing. Little unsteady on her feet. Appetite is improving. Blood pressure and heart rate have been stable. Functional Status: Reports: Pain Controlled, Tolerating Diet - Review of Systems General: Reports: Weakness. Denies: Fever Pulmonary: Reports: Shortness of Breath, Cough - Patient Data Vitals - Most Recent: Last Vital Signs Temp 37.6 C 01/08/19 11:35 Pulse 96 01/08/19 11:35 Resp 18 01/08/19 11:35 BP 108/53 L 01/08/19 11:35 Pulse Ox 92 L 01/08/19 12:32 Weight - Most Recent: 68.946 kg I&O - Last 24 Hours: Intake & Output 01/07/19 01/08/19 01/08/19 22:59 06:59 14:59 Intake Total 600 808 790 Output Total 400 300 200 Balance 200 508 590 Lab Results Last 24 Hours: Laboratory Results - last 24 hr 01/08/19 01/08/19 Range/Units 05:50 05:50 WBC 10.0 (4.5-11.0) K/uL RBC 3.56 (3.30-5.50) M/uL Hgb 11.5 L (12.0-15.0) g/dL Hct 35.0 L (36.0-48.0) % MCV 98 (80-98) fL MCH 32 H (27-31) pg MCHC 33 (32-36) % Plt Count 293 (150-400) K/uL Sodium 142 (140-148) mmol/L Potassium 4.3 (3.6-5.2) mmol/L Chloride 108 (100-108) mmol/L Carbon Dioxide 26 (21-32) mmol/L Anion Gap 8.3 (5.0-14.0) mmol/L BUN 6 L D (7-18) mg/dL Creatinine 0.7 (0.6-1.0) mg/dL Est Cr Clr Drug Dosing 65.23 mL/min Estimated GFR (MDRD) > 60 (>60) Glucose 106 (74-106) mg/dL Calcium 7.4 L (8.5-10.1) mg/dL Edgardo Results Last 24 Hours: Microbiology 01/06/19 19:15 Urine Culture - Preliminary Urine, Clean Catch MIXED POSITIVE ELEUTERIO DAY 1 01/06/19 13:55 Aerobic Blood Culture - Preliminary Blood - Venous NO GROWTH AFTER 1 DAY Anaerobic Blood Culture - Preliminary NO GROWTH AFTER 1 DAY 01/06/19 13:45 Aerobic Blood Culture - Preliminary Blood - Venous NO GROWTH AFTER 1 DAY Anaerobic Blood Culture - Preliminary NO GROWTH AFTER 1 DAY Med Orders - Current: Current Medications Acetaminophen (Tylenol) 650 mg PO Q4H PRN PRN Reason: Pain (Mild 1-3)/fever Last Admin: 01/08/19 09:04 Dose: 650 mg Albuterol (Proventil Neb Soln) 2.5 mg NEB Q4H PRN PRN Reason: Shortness Of Breath/wheezing Last Admin: 01/07/19 03:38 Dose: 2.5 mg Albuterol/Ipratropium (Duoneb 3.0-0.5 Mg/3 Ml) 3 ml NEB QIDRT [facility] Last Admin: 01/08/19 10:49 Dose: 3 ml Cetirizine HCl (Zyrtec) 10 mg PO DAILY [facility] Last Admin: 01/08/19 09:05 Dose: 10 mg Enoxaparin Sodium (Lovenox) 40 mg SUBCUT Q24H [facility] Last Admin: 01/07/19 16:19 Dose: 40 mg Fluticasone Propionate (Flonase) 0 gm NASBOTH DAILY [facility] Last Admin: 01/08/19 09:05 Dose: 1 applic Ceftriaxone Sodium 1 gm/ (Sodium Chloride) 50 mls @ 100 mls/hr IV Q24H [facility] Last Admin: 01/07/19 14:05 Dose: 100 mls/hr Ibuprofen (Motrin) 400 mg PO Q6H PRN PRN Reason: Fever Last Admin: 01/06/19 20:27 Dose: 400 mg Lactobacillus Rhamnosus (Culturelle) 1 cap PO BID [facility] Last Admin: 01/08/19 09:05 Dose: 1 cap Levothyroxine Sodium (Synthroid) 100 mcg PO DAILY@0730 [facility] Last Admin: 01/08/19 07:50 Dose: 100 mcg Magnesium Oxide (Magnesium Oxide) 400 mg PO BID [facility] Last Admin: 01/08/19 09:05 Dose: 400 mg Montelukast Sodium (Singulair) 10 mg PO DAILY [facility] Last Admin: 01/08/19 09:05 Dose: 10 mg Nystatin (Nystatin Crm) 0 gm TOP BID [facility] Last Admin: 01/08/19 09:06 Dose: Not Given Ondansetron HCl (Zofran) 4 mg IV Q4H PRN PRN Reason: Nausea/Vomiting Polyethylene Glycol (Miralax) 17 gm PO DAILY PRN PRN Reason: Constipation Sodium Chloride (Saline Flush) 10 ml FLUSH ASDIRECTED PRN PRN Reason: Keep Vein Open Triamcinolone Acetonide (Triamcinolone Acetonide 0.1% Crm) 0 gm TOP BID [facility] Last Admin: 01/08/19 09:06 Dose: Not Given Discontinued Medications Lactated Ringer's (Ringers, Lactated) 1,000 mls @ 1,000 mls/hr IV BOLUS ONE Stop: 01/06/19 14:33 Last Admin: 01/06/19 13:44 Dose: 1,000 mls/hr Ceftriaxone Sodium 1 gm/ (Sodium Chloride) 50 mls @ 100 mls/hr IV ONETIME ONE Stop: 01/06/19 14:17 Last Admin: 01/06/19 14:00 Dose: 100 mls/hr Azithromycin 500 mg/ Sodium (Chloride) 250 mls @ 250 mls/hr IV Q24H [facility] Last Admin: 01/07/19 16:19 Dose: 250 mls/hr Sodium Chloride (Normal Saline) 1,000 mls @ 100 mls/hr IV ASDIRECTED [facility] Last Admin: 01/07/19 04:47 Dose: 100 mls/hr Sodium Chloride (Normal Saline) 1,000 mls @ 50 mls/hr IV ASDIRECTED [facility] Last Admin: 01/08/19 11:55 Dose: 50 mls/hr Ondansetron HCl (Zofran Odt) 4 mg PO ONETIME ONE Stop: 01/06/19 13:11 Last Admin: 01/06/19 13:16 Dose: 4 mg Potassium Chloride (Klor-Con M20) 40 meq PO ONETIME ONE Stop: 01/07/19 10:01 Last Admin: 01/07/19 11:13 Dose: 40 meq Sodium Chloride (Saline Flush) 10 ml FLUSH ASDIRECTED PRN PRN Reason: Keep Vein Open Last Admin: 01/06/19 13:16 Dose: 10 ml - Exam Quality Assessment: Supplemental Oxygen General: Cooperative, No Acute Distress Lungs: Normal Respiratory Effort, Decreased Breath Sounds (right lung base), Crackles (both bases) Cardiovascular: Regular Rate, Regular Rhythm GI/Abdominal Exam: Soft, No Distention Extremities: No Pedal Edema Psy/Mental Status: Alert, Normal Affect - Problem List Review Problem List Initiated/Reviewed/Updated: Yes - My Orders Last 24 Hours: My Active Orders 01/08/19 12:45 Discontinue Telemetry Monitoring [Cardiac Monitoring Discontinue] [RC] Click to Edit Convert IV to Saline Lock [OM.PC] Routine 01/08/19 17:00 Azithromycin [Zithromax] 500 mg PO QPM - Plan Plan:: ASSESSMENT AND PLAN BILATERAL PNEUMONIA - complicated by acute respiratory failure with hypoxia. White count has normalized. No fevers overnight. Still needing supplemental oxygen but otherwise slowly improving. Cultures negative so far. -Supplemental oxygen as needed, wean as able -Follow-up Blood and sputum cultures -Nebulizer therapy with albuterol and duo nebs -Continue ceftriaxone and azithromycin -Saline lock IV DOWN'S SYNDROME/EARLY DEMENTIA MAINTENANCE ISSUES -DVT prophylaxis; Lovenox 40 mg subcutaneous daily -GI prophylaxis; not indicated -Russell catheter; not indicated -Nutrition; regular diet DISPOSITION - anticipate discharge back to her [facility] after the hospital stay, probably in 1-2 days Alexey Alvares MD
[2019-01-08] MEDS: cefTRIAXone 1 GM in Sodium Chloride 0.9% 50 ML IV SCH (14:02)
[2019-01-08] MEDS: Enoxaparin 40 MG/0.4 ML Syringe SUBCUT SCH (16:47)
[2019-01-08] MEDS: Azithromycin 250 MG Tab PO SCH (16:47)
[2019-01-09] MEDS: Albuterol 0.083% 2.5 MG/3 ML Neb Soln NEB PRN (00:50)
[2019-01-09] MEDS ORDERED: Diazepam 5 MG Tab PO PRN (01:07)
--- NOTE | 2019-01-09 01:40 | PCM.SN ---
- Free Text/Narrative Note: Time: 1 am call from [address] [place] [address] Sadaf was found to be sleeping, hands were cool, her oxygen was laying in the bed, pulse ox at 70's. afebrile The Nurse woke her up and applied oxygen. pulse ox increased to 92% resp rate 28. Soumya was noted to be anxious, request her valium for her nerves. a: hypoxia due to not wearing oxygen and possible sleep apnea anxiety-panic attack for be awaken from a sound sleep p; try to keep oxygen on, re-order valium 5 mg po tid prn anxiety. continuous pulse ox continue present plan of care.
[2019-01-09] MEDS ORDERED: Codeine/guaiFENesin 100mg-10 MG/5 ML Syrup 10 ML Cup PO PRN (05:43)
[2019-01-09] MEDS: Acetaminophen 325 MG Tab PO PRN ×2 (05:58→17:58)
[2019-01-09] MEDS: Albuterol/Ipratropium 3.0-0.5 MG/3 ML Neb Soln NEB SCH ×4 (07:25→20:21)
[2019-01-09] MEDS: Levothyroxine 100 MCG Tab PO SCH (07:56)
--- NOTE | 2019-01-09 10:09 | PCM.PN ---
- General Info Date of Service: 01/09/19 Subjective Update: The patient did have difficulty with a fever greater than 101 last night. She also woke up startled in the middle of the night and had some difficulty with anxiety and getting back to sleep afterwards. She is feeling better this morning and endorses less shortness of breath. She does continue to require supplemental oxygen. She has been using her Acapella. No complaints of abdominal pain or nausea. Functional Status: Reports: Pain Controlled, Tolerating Diet - Review of Systems General: Reports: Fever Pulmonary: Reports: Pleuritic Chest Pain, Cough - Patient Data Vitals - Most Recent: Last Vital Signs Temp 36.9 C 01/09/19 10:05 Pulse 74 01/09/19 10:05 Resp 21 H 01/09/19 10:05 BP 103/52 L 01/09/19 10:05 Pulse Ox 94 L 01/09/19 10:05 Weight - Most Recent: 68.946 kg I&O - Last 24 Hours: Intake & Output 01/08/19 01/09/19 01/09/19 22:59 06:59 14:59 Intake Total 240 300 320 Output Total 200 200 Balance 40 100 320 Edgardo Results Last 24 Hours: Microbiology 01/06/19 19:15 Urine Culture - Final Urine, Clean Catch MIXED POSITIVE ELEUTERIO DAY 2 01/06/19 13:55 Aerobic Blood Culture - Preliminary Blood - Venous NO GROWTH AFTER 2 DAYS Anaerobic Blood Culture - Preliminary NO GROWTH AFTER 2 DAYS 01/06/19 13:45 Aerobic Blood Culture - Preliminary Blood - Venous NO GROWTH AFTER 2 DAYS Anaerobic Blood Culture - Preliminary NO GROWTH AFTER 2 DAYS Med Orders - Current: Current Medications Acetaminophen (Tylenol) 650 mg PO Q4H PRN PRN Reason: Pain (Mild 1-3)/fever Last Admin: 01/09/19 05:58 Dose: 650 mg Albuterol (Proventil Neb Soln) 2.5 mg NEB Q4H PRN PRN Reason: Shortness Of Breath/wheezing Last Admin: 01/09/19 00:50 Dose: 2.5 mg Albuterol/Ipratropium (Duoneb 3.0-0.5 Mg/3 Ml) 3 ml NEB QIDRT [facility] Last Admin: 01/09/19 07:25 Dose: 3 ml Azithromycin (Zithromax) 500 mg PO QPM [facility] Last Admin: 01/08/19 16:47 Dose: 500 mg Cetirizine HCl (Zyrtec) 10 mg PO DAILY [facility] Last Admin: 01/08/19 09:05 Dose: 10 mg Diazepam (Valium.) 5 mg PO ONETIME PRN PRN Reason: Anxiety Last Admin: 01/09/19 01:19 Dose: 5 mg Diazepam (Valium.) 5 mg PO Q6H PRN PRN Reason: Anxiety Enoxaparin Sodium (Lovenox) 40 mg SUBCUT Q24H [facility] Last Admin: 01/08/19 16:47 Dose: 40 mg Fluticasone Propionate (Flonase) 0 gm NASBOTH DAILY [facility] Last Admin: 01/08/19 09:05 Dose: 1 applic Guaifenesin/Codeine Phosphate (Robitussin Ac) 10 ml PO Q4H PRN PRN Reason: Cough Last Admin: 01/09/19 05:58 Dose: 10 ml Guaifenesin/Dextromethorphan (Robitussin Dm) 10 ml PO TID [facility] Ceftriaxone Sodium 1 gm/ (Sodium Chloride) 50 mls @ 100 mls/hr IV Q24H [facility] Last Admin: 01/08/19 14:02 Dose: 100 mls/hr Ibuprofen (Motrin) 400 mg PO Q6H PRN PRN Reason: Fever Last Admin: 01/06/19 20:27 Dose: 400 mg Lactobacillus Rhamnosus (Culturelle) 1 cap PO BID [facility] Last Admin: 01/08/19 21:48 Dose: 1 cap Levothyroxine Sodium (Synthroid) 100 mcg PO DAILY@0730 [facility] Last Admin: 01/09/19 07:56 Dose: 100 mcg Magnesium Oxide (Magnesium Oxide) 400 mg PO BID [facility] Last Admin: 01/08/19 21:49 Dose: 400 mg Montelukast Sodium (Singulair) 10 mg PO DAILY [facility] Last Admin: 01/08/19 09:05 Dose: 10 mg Nystatin (Nystatin Crm) 0 gm TOP BID [facility] Last Admin: 01/08/19 22:01 Dose: Not Given Ondansetron HCl (Zofran) 4 mg IV Q4H PRN PRN Reason: Nausea/Vomiting Polyethylene Glycol (Miralax) 17 gm PO DAILY PRN PRN Reason: Constipation Sodium Chloride (Saline Flush) 10 ml FLUSH ASDIRECTED PRN PRN Reason: Keep Vein Open Triamcinolone Acetonide (Triamcinolone Acetonide 0.1% Crm) 0 gm TOP BID [facility] Last Admin: 01/08/19 22:01 Dose: Not Given Discontinued Medications Lactated Ringer's (Ringers, Lactated) 1,000 mls @ 1,000 mls/hr IV BOLUS ONE Stop: 01/06/19 14:33 Last Admin: 01/06/19 13:44 Dose: 1,000 mls/hr Ceftriaxone Sodium 1 gm/ (Sodium Chloride) 50 mls @ 100 mls/hr IV ONETIME ONE Stop: 01/06/19 14:17 Last Admin: 01/06/19 14:00 Dose: 100 mls/hr Azithromycin 500 mg/ Sodium (Chloride) 250 mls @ 250 mls/hr IV Q24H [facility] Last Admin: 01/07/19 16:19 Dose: 250 mls/hr Sodium Chloride (Normal Saline) 1,000 mls @ 100 mls/hr IV ASDIRECTED [facility] Last Admin: 01/07/19 04:47 Dose: 100 mls/hr Sodium Chloride (Normal Saline) 1,000 mls @ 50 mls/hr IV ASDIRECTED [facility] Last Admin: 01/08/19 11:55 Dose: 50 mls/hr Ondansetron HCl (Zofran Odt) 4 mg PO ONETIME ONE Stop: 01/06/19 13:11 Last Admin: 01/06/19 13:16 Dose: 4 mg Potassium Chloride (Klor-Con M20) 40 meq PO ONETIME ONE Stop: 01/07/19 10:01 Last Admin: 01/07/19 11:13 Dose: 40 meq Sodium Chloride (Saline Flush) 10 ml FLUSH ASDIRECTED PRN PRN Reason: Keep Vein Open Last Admin: 01/06/19 13:16 Dose: 10 ml - Exam Quality Assessment: Supplemental Oxygen General: Alert, Cooperative, No Acute Distress Lungs: Normal Respiratory Effort, Decreased Breath Sounds (left lung base), Crackles (both bases L>R) Cardiovascular: Regular Rate, Regular Rhythm GI/Abdominal Exam: Soft, No Distention Extremities: No Pedal Edema. No: Increased Warmth Skin: Warm, Dry Psy/Mental Status: Alert, Normal Affect - Problem List Review Problem List Initiated/Reviewed/Updated: Yes - My Orders Last 24 Hours: My Active Orders 10/22/19 12:45 Convert IV to Saline Lock [OM.PC] Routine 01/08/19 17:00 Azithromycin [Zithromax] 500 mg PO QPM 01/09/19 10:08 diazePAM [Valium] 5 mg PO Q6H PRN 01/09/19 10:15 Dextromethorphan/guaiFENesin [Robitussin DM] 10 ml PO TID 01/10/19 05:00 BASIC METABOLIC PANEL,BMP [CHEM] Timed CBC W/O DIFF,HEMOGRAM [HEME] Timed (1) - Plan Plan:: ASSESSMENT AND PLAN BILATERAL PNEUMONIA - complicated by acute respiratory failure with hypoxia. White count has normalized. Cultures negative so far. She did have a fever overnight. Still requiring supplemental oxygen but otherwise slowly improving. -Supplemental oxygen as needed, wean as able -Follow-up Blood and sputum cultures -Scheduled guaifenesin -Nebulizer therapy with albuterol and duo nebs -Continue ceftriaxone and azithromycin -Saline lock IV DOWN'S SYNDROME/EARLY DEMENTIA MAINTENANCE ISSUES -DVT prophylaxis; enoxaparin 40 mg subcutaneous daily -GI prophylaxis; not indicated -Russell catheter; not indicated -Nutrition; regular diet DISPOSITION - [facility], probably in 1-2 more days Alexey Alvares MD
[2019-01-09] MEDS: Nystatin Crm 15 GM Tube TOP SCH ×2 (10:10→20:22)
[2019-01-09] MEDS: Montelukast 10 MG Tab PO SCH (10:10)
[2019-01-09] MEDS: Lactobacillus Rhamnosus GG (Probiotic) Cap PO SCH ×2 (10:10→20:21)
[2019-01-09] MEDS: Fluticasone Propionate Nasal Spray 16 GM Bottle NASBOTH SCH (10:10)
[2019-01-09] MEDS: Triamcinolone Acetonide 0.1% Crm 15 GM Tube TOP SCH ×2 (10:11→20:22)
[2019-01-09] MEDS: Magnesium Oxide 400 MG Tab PO SCH ×2 (10:11→20:22)
[2019-01-09] MEDS: Cetirizine 10 MG Tab PO SCH (10:11)
[2019-01-09] MEDS: guaiFENesin/Dextromethorphan 100-10 MG/5 ML Soln 10 ML Cup PO SCH ×3 (11:35→20:22)
[2019-01-09] MEDS: cefTRIAXone 1 GM in Sodium Chloride 0.9% 50 ML IV SCH (14:05)
[2019-01-09] MEDS: Enoxaparin 40 MG/0.4 ML Syringe SUBCUT SCH (16:30)
[2019-01-09] MEDS: Azithromycin 250 MG Tab PO SCH (16:30)
[2019-01-09] MEDS ORDERED: Benzocaine/Cetylpyridinium/Menthol Lozenge MUCMEM PRN (19:35)
[2019-01-09] MEDS: Diazepam 5 MG Tab PO PRN (20:21)
[2019-01-09] MEDS ORDERED: Melatonin 3 MG Tab PO PRN (22:08)
[2019-01-09] MEDS ORDERED: Diazepam 5 MG Tab PO ONE (22:08)
[2019-01-09] MEDS: Ibuprofen 400 MG Tab PO PRN (22:14)
[2019-01-10] MEDS: Albuterol/Ipratropium 3.0-0.5 MG/3 ML Neb Soln NEB SCH ×4 (06:58→20:36)
[2019-01-10] MEDS: Levothyroxine 100 MCG Tab PO SCH (07:26)
[2019-01-10] MEDS: Magnesium Oxide 400 MG Tab PO SCH ×2 (08:26→20:37)
[2019-01-10] MEDS: Montelukast 10 MG Tab PO SCH (08:26)
[2019-01-10] MEDS: Lactobacillus Rhamnosus GG (Probiotic) Cap PO SCH ×2 (08:27→20:37)
[2019-01-10] MEDS: Fluticasone Propionate Nasal Spray 16 GM Bottle NASBOTH SCH (08:27)
[2019-01-10] MEDS: Cetirizine 10 MG Tab PO SCH (08:27)
[2019-01-10] MEDS: Triamcinolone Acetonide 0.1% Crm 15 GM Tube TOP SCH ×2 (08:28→20:38)
[2019-01-10] MEDS: guaiFENesin/Dextromethorphan 100-10 MG/5 ML Soln 10 ML Cup PO SCH (08:28)
[2019-01-10] MEDS: Nystatin Crm 15 GM Tube TOP SCH ×2 (08:28→20:41)
--- NOTE | 2019-01-10 10:54 | PCM.PN ---
- General Info Date of Service: 01/10/19 Subjective Update: Overnight patient had difficulty with waking up startled and resulting anxiety. Much more calm this morning. Possibly some confusion that family believes is related to the cough syrup. Patient feels less short of breath. Cough is loose. Appetite is improving. She's been able to improve her activity some. Low-grade temperature elevation overnight but no fever. Cultures still negative. Functional Status: Reports: Pain Controlled, Tolerating Diet - Review of Systems Pulmonary: Reports: Pleuritic Chest Pain, Cough - Patient Data Vitals - Most Recent: Last Vital Signs Temp 97.3 C H 01/10/19 07:00 Pulse 80 01/10/19 10:49 Resp 18 01/10/19 07:00 BP 101/62 01/10/19 07:00 Pulse Ox 94 L 01/10/19 09:36 Weight - Most Recent: 68.946 kg I&O - Last 24 Hours: Intake & Output 01/09/19 01/10/19 01/10/19 22:59 06:59 14:59 Intake Total 610 120 Output Total 325 Balance 285 120 Lab Results Last 24 Hours: Laboratory Results - last 24 hr 01/10/19 01/10/19 Range/Units 05:00 05:00 WBC 4.7 (4.5-11.0) K/uL RBC 3.26 L (3.30-5.50) M/uL Hgb 10.2 L (12.0-15.0) g/dL Hct 32.5 L (36.0-48.0) % MCV 100 H (80-98) fL MCH 31 (27-31) pg MCHC 31 L (32-36) % Plt Count 304 (150-400) K/uL Sodium 140 (140-148) mmol/L Potassium 4.1 (3.6-5.2) mmol/L Chloride 105 (100-108) mmol/L Carbon Dioxide 30 (21-32) mmol/L Anion Gap 5.5 (5.0-14.0) mmol/L BUN 7 (7-18) mg/dL Creatinine 0.6 (0.6-1.0) mg/dL Est Cr Clr Drug Dosing 76.10 mL/min Estimated GFR (MDRD) > 60 (>60) Glucose 86 (74-106) mg/dL Calcium 7.8 L (8.5-10.1) mg/dL Edgardo Results Last 24 Hours: Microbiology 01/06/19 13:55 Aerobic Blood Culture - Preliminary Blood - Venous NO GROWTH AFTER 3 DAYS Anaerobic Blood Culture - Preliminary NO GROWTH AFTER 3 DAYS 01/06/19 13:45 Aerobic Blood Culture - Preliminary Blood - Venous NO GROWTH AFTER 3 DAYS Anaerobic Blood Culture - Preliminary NO GROWTH AFTER 3 DAYS Med Orders - Current: Current Medications Acetaminophen (Tylenol) 650 mg PO Q4H PRN PRN Reason: Pain (Mild 1-3)/fever Last Admin: 01/09/19 17:58 Dose: 650 mg Albuterol (Proventil Neb Soln) 2.5 mg NEB Q4H PRN PRN Reason: Shortness Of Breath/wheezing Last Admin: 01/09/19 00:50 Dose: 2.5 mg Albuterol/Ipratropium (Duoneb 3.0-0.5 Mg/3 Ml) 3 ml NEB QIDRT [facility] Last Admin: 01/10/19 10:49 Dose: 3 ml Azithromycin (Zithromax) 500 mg PO QPM [facility] Last Admin: 01/09/19 16:30 Dose: 500 mg Benzocaine/Menthol (Cepacol Sore Throat) 1 lozenge MUCMEM Q2H PRN PRN Reason: Sore Throat Cetirizine HCl (Zyrtec) 10 mg PO DAILY [facility] Last Admin: 01/10/19 08:27 Dose: 10 mg Diazepam (Valium.) 5 mg PO Q6H PRN PRN Reason: Anxiety Last Admin: 01/09/19 20:21 Dose: 5 mg Enoxaparin Sodium (Lovenox) 40 mg SUBCUT Q24H [facility] Last Admin: 01/09/19 16:30 Dose: 40 mg Fluticasone Propionate (Flonase) 0 gm NASBOTH DAILY [facility] Last Admin: 01/10/19 08:27 Dose: 1 applic Guaifenesin/Dextromethorphan (Robitussin Dm) 10 ml PO TID [facility] Last Admin: 01/10/19 08:28 Dose: 10 ml Ceftriaxone Sodium 1 gm/ (Sodium Chloride) 50 mls @ 100 mls/hr IV Q24H [facility] Last Admin: 01/09/19 14:05 Dose: 100 mls/hr Ibuprofen (Motrin) 400 mg PO Q6H PRN PRN Reason: Fever Last Admin: 01/09/19 22:14 Dose: 400 mg Lactobacillus Rhamnosus (Culturelle) 1 cap PO BID [facility] Last Admin: 01/10/19 08:27 Dose: 1 cap Levothyroxine Sodium (Synthroid) 100 mcg PO DAILY@0730 [facility] Last Admin: 01/10/19 07:26 Dose: 100 mcg Magnesium Oxide (Magnesium Oxide) 400 mg PO BID [facility] Last Admin: 01/10/19 08:26 Dose: 400 mg Melatonin (Melatonin) 6 mg PO BEDTIME PRN PRN Reason: Insomnia Montelukast Sodium (Singulair) 10 mg PO DAILY [facility] Last Admin: 01/10/19 08:26 Dose: 10 mg Nystatin (Nystatin Crm) 0 gm TOP BID [facility] Last Admin: 01/10/19 08:28 Dose: 1 applic Ondansetron HCl (Zofran) 4 mg IV Q4H PRN PRN Reason: Nausea/Vomiting Polyethylene Glycol (Miralax) 17 gm PO DAILY PRN PRN Reason: Constipation Sodium Chloride (Saline Flush) 10 ml FLUSH ASDIRECTED PRN PRN Reason: Keep Vein Open Triamcinolone Acetonide (Triamcinolone Acetonide 0.1% Crm) 0 gm TOP BID [facility] Last Admin: 01/10/19 08:28 Dose: Not Given Discontinued Medications Diazepam (Valium.) 5 mg PO ONETIME PRN PRN Reason: Anxiety Last Admin: 01/09/19 01:19 Dose: 5 mg Diazepam (Valium.) 5 mg PO ONETIME ONE Stop: 01/09/19 22:09 Last Admin: 01/09/19 23:44 Dose: Not Given Guaifenesin/Codeine Phosphate (Robitussin Ac) 10 ml PO Q4H PRN PRN Reason: Cough Last Admin: 01/09/19 05:58 Dose: 10 ml Lactated Ringer's (Ringers, Lactated) 1,000 mls @ 1,000 mls/hr IV BOLUS ONE Stop: 01/06/19 14:33 Last Admin: 01/06/19 13:44 Dose: 1,000 mls/hr Ceftriaxone Sodium 1 gm/ (Sodium Chloride) 50 mls @ 100 mls/hr IV ONETIME ONE Stop: 01/06/19 14:17 Last Admin: 01/06/19 14:00 Dose: 100 mls/hr Azithromycin 500 mg/ Sodium (Chloride) 250 mls @ 250 mls/hr IV Q24H [facility] Last Admin: 01/07/19 16:19 Dose: 250 mls/hr Sodium Chloride (Normal Saline) 1,000 mls @ 100 mls/hr IV ASDIRECTED [facility] Last Admin: 01/07/19 04:47 Dose: 100 mls/hr Sodium Chloride (Normal Saline) 1,000 mls @ 50 mls/hr IV ASDIRECTED [facility] Last Admin: 01/08/19 11:55 Dose: 50 mls/hr Ondansetron HCl (Zofran Odt) 4 mg PO ONETIME ONE Stop: 01/06/19 13:11 Last Admin: 01/06/19 13:16 Dose: 4 mg Potassium Chloride (Klor-Con M20) 40 meq PO ONETIME ONE Stop: 01/07/19 10:01 Last Admin: 01/07/19 11:13 Dose: 40 meq Sodium Chloride (Saline Flush) 10 ml FLUSH ASDIRECTED PRN PRN Reason: Keep Vein Open Last Admin: 01/06/19 13:16 Dose: 10 ml - Exam Quality Assessment: Supplemental Oxygen General: Alert, Cooperative, No Acute Distress Lungs: Normal Respiratory Effort, Crackles (few left lung base) Cardiovascular: Regular Rate, Regular Rhythm GI/Abdominal Exam: Soft, No Distention Extremities: No Pedal Edema Psy/Mental Status: Alert, Normal Affect - Problem List Review Problem List Initiated/Reviewed/Updated: Yes - My Orders Last 24 Hours: My Active Orders 01/09/19 10:08 diazePAM [Valium] 5 mg PO Q6H PRN 01/09/19 10:15 Dextromethorphan/guaiFENesin [Robitussin DM] 10 ml PO TID - Plan Plan:: ASSESSMENT AND PLAN BILATERAL PNEUMONIA - complicated by acute respiratory failure with hypoxia. White count has normalized. Cultures negative so far. Supplemental oxygen requirement decreasing but not quite able to wean off at this time. -Supplemental oxygen as needed, wean as able -Follow-up Blood and sputum cultures -Scheduled guaifenesin -Nebulizer therapy with albuterol and duo nebs -Continue azithromycin and transition to oral cefdinir -Saline lock IV DOWN'S SYNDROME/EARLY DEMENTIA MAINTENANCE ISSUES -DVT prophylaxis; enoxaparin 40 mg subcutaneous daily -GI prophylaxis; not indicated -Russell catheter; not indicated -Nutrition; regular diet DISPOSITION - anticipate discharge back to her nursing home after the hospital stay, possibly tomorrow Alexey Alvares MD
[2019-01-10] MEDS ORDERED: Cefdinir 300 MG Cap PO SCH (13:00)
[2019-01-10] MEDS: guaiFENesin 600 MG Tab.ER PO SCH ×2 (13:32→20:36)
[2019-01-10] MEDS: Enoxaparin 40 MG/0.4 ML Syringe SUBCUT SCH (17:08)
[2019-01-10] MEDS: Azithromycin 250 MG Tab PO SCH (17:08)
[2019-01-10] MEDS: Acetaminophen 325 MG Tab PO PRN (18:37)
[2019-01-10] MEDS: Diazepam 5 MG Tab PO PRN (20:36)
[2019-01-11] MEDS: Albuterol 0.083% 2.5 MG/3 ML Neb Soln NEB PRN (00:44)
[2019-01-11] MEDS: Ibuprofen 400 MG Tab PO PRN (00:44)
[2019-01-11] MEDS ORDERED: Ondansetron 4 MG Tab.DIS PO PRN (00:52)
[2019-01-11] MEDS: Albuterol/Ipratropium 3.0-0.5 MG/3 ML Neb Soln NEB SCH ×4 (06:57→20:48)
[2019-01-11] MEDS: Levothyroxine 100 MCG Tab PO SCH (07:24)
[2019-01-11] MEDS ORDERED: Levofloxacin 500 MG Tab PO SCH (09:00)
[2019-01-11] MEDS: guaiFENesin 600 MG Tab.ER PO SCH ×3 (09:38→20:42)
[2019-01-11] MEDS: Magnesium Oxide 400 MG Tab PO SCH ×2 (09:38→20:42)
[2019-01-11] MEDS: Lactobacillus Rhamnosus GG (Probiotic) Cap PO SCH ×2 (09:38→20:42)
[2019-01-11] MEDS: Fluticasone Propionate Nasal Spray 16 GM Bottle NASBOTH SCH (09:39)
[2019-01-11] MEDS: Triamcinolone Acetonide 0.1% Crm 15 GM Tube TOP SCH ×2 (09:40→20:50)
[2019-01-11] MEDS: Nystatin Crm 15 GM Tube TOP SCH ×2 (09:40→20:50)
[2019-01-11] MEDS: Montelukast 10 MG Tab PO SCH (09:41)
[2019-01-11] MEDS: Cetirizine 10 MG Tab PO SCH (09:42)
--- NOTE | 2019-01-11 10:53 | PCM.PN ---
- General Info Date of Service: 01/11/19 Subjective Update: No acute events overnight. Last night there was concern that she may be developing a drug rash on her abdomen. The rash was not painful or pruritic. Minimal area on the right side of her abdomen involved and does not appear to be consistent with a drug rash. Still requiring supplemental oxygen but feeling a little better each day. Appetite and activity have been improving. Cough is productive. Functional Status: Reports: Pain Controlled, Tolerating Diet - Review of Systems General: Reports: Weakness. Denies: Fever Pulmonary: Reports: Shortness of Breath, Cough - Patient Data Vitals - Most Recent: Last Vital Signs Temp 36.4 C 01/11/19 08:14 Pulse 79 01/11/19 10:35 Resp 24 H 01/11/19 08:14 BP 106/79 01/11/19 08:14 Pulse Ox 90 L 01/11/19 10:35 Weight - Most Recent: 68.946 kg I&O - Last 24 Hours: Intake & Output 01/10/19 01/11/19 01/11/19 22:59 06:59 14:59 Intake Total 700 Balance 700 Edgardo Results Last 24 Hours: Microbiology 01/06/19 13:55 Aerobic Blood Culture - Preliminary Blood - Venous NO GROWTH AFTER 4 DAYS Anaerobic Blood Culture - Preliminary NO GROWTH AFTER 4 DAYS 01/06/19 13:45 Aerobic Blood Culture - Preliminary Blood - Venous NO GROWTH AFTER 4 DAYS Anaerobic Blood Culture - Preliminary NO GROWTH AFTER 4 DAYS Med Orders - Current: Current Medications Acetaminophen (Tylenol) 650 mg PO Q4H PRN PRN Reason: Pain (Mild 1-3)/fever Last Admin: 01/10/19 18:37 Dose: 650 mg Albuterol (Proventil Neb Soln) 2.5 mg NEB Q4H PRN PRN Reason: Shortness Of Breath/wheezing Last Admin: 01/11/19 00:44 Dose: 2.5 mg Albuterol/Ipratropium (Duoneb 3.0-0.5 Mg/3 Ml) 3 ml NEB QIDRT [facility] Last Admin: 01/11/19 10:34 Dose: 3 ml Benzocaine/Menthol (Cepacol Sore Throat) 1 lozenge MUCMEM Q2H PRN PRN Reason: Sore Throat Cetirizine HCl (Zyrtec) 10 mg PO DAILY [facility] Last Admin: 01/11/19 09:42 Dose: 10 mg Diazepam (Valium.) 5 mg PO Q6H PRN PRN Reason: Anxiety Last Admin: 01/10/19 20:36 Dose: 5 mg Enoxaparin Sodium (Lovenox) 40 mg SUBCUT Q24H [facility] Last Admin: 01/10/19 17:08 Dose: 40 mg Fluticasone Propionate (Flonase) 0 gm NASBOTH DAILY [facility] Last Admin: 01/11/19 09:39 Dose: 2 applic Guaifenesin (Mucinex) 600 mg PO TID [facility] Last Admin: 01/11/19 09:38 Dose: 600 mg Ibuprofen (Motrin) 400 mg PO Q6H PRN PRN Reason: Fever Last Admin: 01/11/19 00:44 Dose: 400 mg Lactobacillus Rhamnosus (Culturelle) 1 cap PO BID [facility] Last Admin: 01/11/19 09:38 Dose: 1 cap Levofloxacin 250 mg/ (Levofloxacin 500 mg) 750 mg PO ACBREAKFAST [facility] Levothyroxine Sodium (Synthroid) 100 mcg PO DAILY@0730 [facility] Last Admin: 01/11/19 07:24 Dose: 100 mcg Magnesium Oxide (Magnesium Oxide) 400 mg PO BID [facility] Last Admin: 01/11/19 09:38 Dose: 400 mg Melatonin (Melatonin) 6 mg PO BEDTIME PRN PRN Reason: Insomnia Last Admin: 01/11/19 00:44 Dose: 6 mg Montelukast Sodium (Singulair) 10 mg PO DAILY [facility] Last Admin: 01/11/19 09:41 Dose: 10 mg Nystatin (Nystatin Crm) 0 gm TOP BID [facility] Last Admin: 01/11/19 09:40 Dose: 1 applic Ondansetron HCl (Zofran Odt) 4 mg PO Q4H PRN PRN Reason: Nausea/Vomiting Polyethylene Glycol (Miralax) 17 gm PO DAILY PRN PRN Reason: Constipation Sodium Chloride (Saline Flush) 10 ml FLUSH ASDIRECTED PRN PRN Reason: Keep Vein Open Triamcinolone Acetonide (Triamcinolone Acetonide 0.1% Crm) 0 gm TOP BID [facility] Last Admin: 01/11/19 09:40 Dose: 1 applic Discontinued Medications Azithromycin (Zithromax) 500 mg PO QPM [facility] Last Admin: 01/10/19 17:08 Dose: 500 mg Cefdinir (Omnicef) 300 mg PO BID [facility] Last Admin: 01/10/19 13:32 Dose: 300 mg Diazepam (Valium.) 5 mg PO ONETIME PRN PRN Reason: Anxiety Last Admin: 01/09/19 01:19 Dose: 5 mg Diazepam (Valium.) 5 mg PO ONETIME ONE Stop: 01/09/19 22:09 Last Admin: 01/09/19 23:44 Dose: Not Given Guaifenesin/Codeine Phosphate (Robitussin Ac) 10 ml PO Q4H PRN PRN Reason: Cough Last Admin: 01/09/19 05:58 Dose: 10 ml Guaifenesin/Dextromethorphan (Robitussin Dm) 10 ml PO TID [facility] Last Admin: 01/10/19 08:28 Dose: 10 ml Lactated Ringer's (Ringers, Lactated) 1,000 mls @ 1,000 mls/hr IV BOLUS ONE Stop: 01/06/19 14:33 Last Admin: 01/06/19 13:44 Dose: 1,000 mls/hr Ceftriaxone Sodium 1 gm/ (Sodium Chloride) 50 mls @ 100 mls/hr IV ONETIME ONE Stop: 01/06/19 14:17 Last Admin: 01/06/19 14:00 Dose: 100 mls/hr Azithromycin 500 mg/ Sodium (Chloride) 250 mls @ 250 mls/hr IV Q24H [facility] Last Admin: 01/07/19 16:19 Dose: 250 mls/hr Ceftriaxone Sodium 1 gm/ (Sodium Chloride) 50 mls @ 100 mls/hr IV Q24H [facility] Last Admin: 01/09/19 14:05 Dose: 100 mls/hr Sodium Chloride (Normal Saline) 1,000 mls @ 100 mls/hr IV ASDIRECTED [facility] Last Admin: 01/07/19 04:47 Dose: 100 mls/hr Sodium Chloride (Normal Saline) 1,000 mls @ 50 mls/hr IV ASDIRECTED [facility] Last Admin: 01/08/19 11:55 Dose: 50 mls/hr Ondansetron HCl (Zofran Odt) 4 mg PO ONETIME ONE Stop: 01/06/19 13:11 Last Admin: 01/06/19 13:16 Dose: 4 mg Ondansetron HCl (Zofran) 4 mg IV Q4H PRN PRN Reason: Nausea/Vomiting Potassium Chloride (Klor-Con M20) 40 meq PO ONETIME ONE Stop: 01/07/19 10:01 Last Admin: 01/07/19 11:13 Dose: 40 meq Sodium Chloride (Saline Flush) 10 ml FLUSH ASDIRECTED PRN PRN Reason: Keep Vein Open Last Admin: 01/06/19 13:16 Dose: 10 ml - Exam Quality Assessment: Supplemental Oxygen General: Alert, Oriented, Cooperative, No Acute Distress Lungs: Normal Respiratory Effort, Crackles (rare left lung base) Cardiovascular: Regular Rate, Regular Rhythm GI/Abdominal Exam: Soft, No Distention Extremities: No Pedal Edema Psy/Mental Status: Alert, Normal Affect - Problem List Review Problem List Initiated/Reviewed/Updated: Yes - My Orders Last 24 Hours: My Active Orders 01/10/19 14:00 guaiFENesin [Mucinex] 600 mg PO TID 01/11/19 00:52 Ondansetron [Zofran ODT] 4 mg PO Q4H PRN 01/11/19 09:00 Levofloxacin [Levaquin] 750 mg PO ACBREAKFAST - Plan Plan:: ASSESSMENT AND PLAN BILATERAL PNEUMONIA - complicated by acute respiratory failure with hypoxia. White count has normalized. Cultures negative so far. Still requiring supplemental oxygen. Some concern for drug rash but this is highly unlikely based on examination today. -Supplemental oxygen as needed, wean as able -Follow-up Blood and sputum cultures -Scheduled guaifenesin -Nebulizer therapy with albuterol and duo nebs -Change antibiotics to levofloxacin since she's not improving as steadily as I would expect -Saline lock IV DOWN'S SYNDROME/EARLY DEMENTIA MAINTENANCE ISSUES -DVT prophylaxis; enoxaparin 40 mg subcutaneous daily -GI prophylaxis; not indicated -Russell catheter; not indicated -Nutrition; regular diet DISPOSITION - anticipate discharge back to her [facility] after the hospital stay, probably 1-2 more days Alexey Alvares MD
[2019-01-11] MEDS: Enoxaparin 40 MG/0.4 ML Syringe SUBCUT SCH (17:41)
[2019-01-12] MEDS: Ibuprofen 400 MG Tab PO PRN (02:50)
[2019-01-12] MEDS: Albuterol/Ipratropium 3.0-0.5 MG/3 ML Neb Soln NEB SCH ×4 (07:14→21:01)
[2019-01-12] MEDS: Levothyroxine 100 MCG Tab PO SCH (07:38)
--- NOTE | 2019-01-12 09:39 | PCM.PN ---
- General Info Date of Service: 01/12/19 Subjective Update: There were no acute events overnight. Maybe some mild confusion today but in general doing well. Still a little short of breath and still coughing though not as productive. She is down to 0.5 L of supplemental oxygen at this time. She did require a little more oxygen overnight but does well during the day. Appetite good. Energy improving. Able to tolerate increasing activity. Cultures still negative. Functional Status: Reports: Pain Controlled, Tolerating Diet - Review of Systems Pulmonary: Reports: Shortness of Breath, Cough - Patient Data Vitals - Most Recent: Last Vital Signs Temp 36.7 C 01/12/19 07:30 Pulse 90 01/12/19 07:30 Resp 22 H 01/12/19 07:30 BP 118/75 01/12/19 07:30 Pulse Ox 93 L 01/12/19 07:30 Weight - Most Recent: 68.946 kg Edgardo Results Last 24 Hours: Microbiology 01/06/19 13:55 Aerobic Blood Culture - Final Blood - Venous NO GROWTH AFTER 5 DAYS Anaerobic Blood Culture - Final NO GROWTH AFTER 5 DAYS 01/06/19 13:45 Aerobic Blood Culture - Final Blood - Venous NO GROWTH AFTER 5 DAYS Anaerobic Blood Culture - Final NO GROWTH AFTER 5 DAYS Med Orders - Current: Current Medications Acetaminophen (Tylenol) 650 mg PO Q4H PRN PRN Reason: Pain (Mild 1-3)/fever Last Admin: 01/10/19 18:37 Dose: 650 mg Albuterol (Proventil Neb Soln) 2.5 mg NEB Q4H PRN PRN Reason: Shortness Of Breath/wheezing Last Admin: 01/11/19 00:44 Dose: 2.5 mg Albuterol/Ipratropium (Duoneb 3.0-0.5 Mg/3 Ml) 3 ml NEB QIDRT [facility] Last Admin: 01/12/19 07:14 Dose: 3 ml Benzocaine/Menthol (Cepacol Sore Throat) 1 lozenge MUCMEM Q2H PRN PRN Reason: Sore Throat Cetirizine HCl (Zyrtec) 10 mg PO DAILY [facility] Last Admin: 01/11/19 09:42 Dose: 10 mg Diazepam (Valium.) 5 mg PO Q6H PRN PRN Reason: Anxiety Last Admin: 01/10/19 20:36 Dose: 5 mg Enoxaparin Sodium (Lovenox) 40 mg SUBCUT Q24H [facility] Last Admin: 01/11/19 17:41 Dose: 40 mg Fluticasone Propionate (Flonase) 0 gm NASBOTH DAILY [facility] Last Admin: 01/11/19 09:39 Dose: 2 applic Guaifenesin (Mucinex) 600 mg PO TID [facility] Last Admin: 01/11/19 20:42 Dose: 600 mg Ibuprofen (Motrin) 400 mg PO Q6H PRN PRN Reason: Fever Last Admin: 01/12/19 02:50 Dose: 400 mg Lactobacillus Rhamnosus (Culturelle) 1 cap PO BID [facility] Last Admin: 01/11/19 20:42 Dose: 1 cap Levofloxacin 250 mg/ (Levofloxacin 500 mg) 750 mg PO ACBREAKFAST [facility] Last Admin: 01/12/19 07:38 Dose: 750 mg Levothyroxine Sodium (Synthroid) 100 mcg PO DAILY@0730 [facility] Last Admin: 01/12/19 07:38 Dose: 100 mcg Magnesium Oxide (Magnesium Oxide) 400 mg PO BID [facility] Last Admin: 01/11/19 20:42 Dose: 400 mg Melatonin (Melatonin) 6 mg PO BEDTIME PRN PRN Reason: Insomnia Last Admin: 01/11/19 00:44 Dose: 6 mg Montelukast Sodium (Singulair) 10 mg PO DAILY [facility] Last Admin: 01/11/19 09:41 Dose: 10 mg Nystatin (Nystatin Crm) 0 gm TOP BID [facility] Last Admin: 01/11/19 20:50 Dose: Not Given Ondansetron HCl (Zofran Odt) 4 mg PO Q4H PRN PRN Reason: Nausea/Vomiting Polyethylene Glycol (Miralax) 17 gm PO DAILY PRN PRN Reason: Constipation Sodium Chloride (Saline Flush) 10 ml FLUSH ASDIRECTED PRN PRN Reason: Keep Vein Open Triamcinolone Acetonide (Triamcinolone Acetonide 0.1% Crm) 0 gm TOP BID [facility] Last Admin: 01/11/19 20:50 Dose: Not Given Discontinued Medications Azithromycin (Zithromax) 500 mg PO QPM [facility] Last Admin: 01/10/19 17:08 Dose: 500 mg Cefdinir (Omnicef) 300 mg PO BID [facility] Last Admin: 01/10/19 13:32 Dose: 300 mg Diazepam (Valium.) 5 mg PO ONETIME PRN PRN Reason: Anxiety Last Admin: 01/09/19 01:19 Dose: 5 mg Diazepam (Valium.) 5 mg PO ONETIME ONE Stop: 01/09/19 22:09 Last Admin: 01/09/19 23:44 Dose: Not Given Guaifenesin/Codeine Phosphate (Robitussin Ac) 10 ml PO Q4H PRN PRN Reason: Cough Last Admin: 01/09/19 05:58 Dose: 10 ml Guaifenesin/Dextromethorphan (Robitussin Dm) 10 ml PO TID [facility] Last Admin: 01/10/19 08:28 Dose: 10 ml Lactated Ringer's (Ringers, Lactated) 1,000 mls @ 1,000 mls/hr IV BOLUS ONE Stop: 01/06/19 14:33 Last Admin: 01/06/19 13:44 Dose: 1,000 mls/hr Ceftriaxone Sodium 1 gm/ (Sodium Chloride) 50 mls @ 100 mls/hr IV ONETIME ONE Stop: 01/06/19 14:17 Last Admin: 01/06/19 14:00 Dose: 100 mls/hr Azithromycin 500 mg/ Sodium (Chloride) 250 mls @ 250 mls/hr IV Q24H [facility] Last Admin: 01/07/19 16:19 Dose: 250 mls/hr Ceftriaxone Sodium 1 gm/ (Sodium Chloride) 50 mls @ 100 mls/hr IV Q24H [facility] Last Admin: 01/09/19 14:05 Dose: 100 mls/hr Sodium Chloride (Normal Saline) 1,000 mls @ 100 mls/hr IV ASDIRECTED [facility] Last Admin: 01/07/19 04:47 Dose: 100 mls/hr Sodium Chloride (Normal Saline) 1,000 mls @ 50 mls/hr IV ASDIRECTED [facility] Last Admin: 01/08/19 11:55 Dose: 50 mls/hr Ondansetron HCl (Zofran Odt) 4 mg PO ONETIME ONE Stop: 01/06/19 13:11 Last Admin: 01/06/19 13:16 Dose: 4 mg Ondansetron HCl (Zofran) 4 mg IV Q4H PRN PRN Reason: Nausea/Vomiting Potassium Chloride (Klor-Con M20) 40 meq PO ONETIME ONE Stop: 01/07/19 10:01 Last Admin: 01/07/19 11:13 Dose: 40 meq Sodium Chloride (Saline Flush) 10 ml FLUSH ASDIRECTED PRN PRN Reason: Keep Vein Open Last Admin: 01/06/19 13:16 Dose: 10 ml - Exam Quality Assessment: Supplemental Oxygen General: Alert, Oriented, Cooperative, No Acute Distress Lungs: Clear to Auscultation, Normal Respiratory Effort Cardiovascular: Regular Rate, Regular Rhythm GI/Abdominal Exam: Soft, No Distention Skin: Warm, Dry Psy/Mental Status: Alert, Normal Affect - Problem List Review Problem List Initiated/Reviewed/Updated: Yes - My Orders Last 24 Hours: My Active Orders 01/11/19 09:00 Levofloxacin [Levaquin] 750 mg PO ACBREAKFAST - Plan Plan:: ASSESSMENT AND PLAN BILATERAL PNEUMONIA - complicated by acute respiratory failure with hypoxia. Clinically doing well but still requiring a small amount of supplemental oxygen. Hopefully we can wean her off of this as the day goes. She may need home oxygen overnight. -Supplemental oxygen as needed, wean as able -Follow-up Blood and sputum cultures -Scheduled guaifenesin -Nebulizer therapy with albuterol and duo nebs -Continue levofloxacin DOWN'S SYNDROME/EARLY DEMENTIA MAINTENANCE ISSUES -DVT prophylaxis; enoxaparin 40 mg subcutaneous daily -GI prophylaxis; not indicated -Russell catheter; not indicated -Nutrition; regular diet DISPOSITION - [facility] to her [facility] after the hospital stay, probably tomorrow Alexey Alvares MD
[2019-01-12] MEDS: Lactobacillus Rhamnosus GG (Probiotic) Cap PO SCH ×2 (09:57→21:01)
[2019-01-12] MEDS: Fluticasone Propionate Nasal Spray 16 GM Bottle NASBOTH SCH (09:57)
[2019-01-12] MEDS: guaiFENesin 600 MG Tab.ER PO SCH ×3 (09:58→21:01)
[2019-01-12] MEDS: Magnesium Oxide 400 MG Tab PO SCH ×2 (09:58→21:00)
[2019-01-12] MEDS: Montelukast 10 MG Tab PO SCH (09:59)
[2019-01-12] MEDS: Cetirizine 10 MG Tab PO SCH (10:00)
[2019-01-12] MEDS: Nystatin Crm 15 GM Tube TOP SCH ×2 (10:08→21:02)
[2019-01-12] MEDS: Triamcinolone Acetonide 0.1% Crm 15 GM Tube TOP SCH ×2 (10:10→21:03)
[2019-01-12] MEDS: Acetaminophen 325 MG Tab PO PRN (12:35)
[2019-01-12] MEDS: Enoxaparin 40 MG/0.4 ML Syringe SUBCUT SCH (17:14)
[2019-01-13] MEDS: Albuterol/Ipratropium 3.0-0.5 MG/3 ML Neb Soln NEB SCH (07:11)
[2019-01-13] MEDS: Levothyroxine 100 MCG Tab PO SCH (07:34)
[2019-01-13 07:54] VITALS: BP 119/66; PULSE 84
[2019-01-13] MEDS: Fluticasone Propionate Nasal Spray 16 GM Bottle NASBOTH SCH (09:01)
[2019-01-13] MEDS: Lactobacillus Rhamnosus GG (Probiotic) Cap PO SCH (09:01)
[2019-01-13] MEDS: guaiFENesin 600 MG Tab.ER PO SCH (09:01)
[2019-01-13] MEDS: Magnesium Oxide 400 MG Tab PO SCH (09:01)
[2019-01-13] MEDS: Nystatin Crm 15 GM Tube TOP SCH (09:02)
[2019-01-13] MEDS: Cetirizine 10 MG Tab PO SCH (09:03)
[2019-01-13] MEDS: Triamcinolone Acetonide 0.1% Crm 15 GM Tube TOP SCH (09:03)
[2019-01-13] MEDS: Montelukast 10 MG Tab PO SCH (09:03)
--- NOTE | 2019-01-13 10:17 | PCM.DCSUM1 ---
Discharge Summary - Hospital Course Brief History: 53-year-old female with Down syndrome and early dementia who presented with cough, shortness of breath and weakness. She is admitted for management of bilateral pneumonia with hypoxic respiratory failure. Diagnosis: Stroke: No - Discharge Data Discharge Date: 01/13/19 Discharge Disposition: Home, Self-Care 01 Condition: Good - Referral to Home Health Primary Care Physician: Walt La MD - Discharge Diagnosis/Problem(s) (1) Pneumonia SNOMED Code(s): 014673095 ICD Code: J18.9 - PNEUMONIA, UNSPECIFIED ORGANISM Status: Acute Qualifiers: Pneumonia type: due to unspecified organism Laterality: bilateral Lung location: lower lobe of lung Qualified Code(s): J18.1 - Lobar pneumonia, unspecified organism (2) Acute respiratory failure with hypoxia SNOMED Code(s): 72053241, 288394738 ICD Code: J96.01 - ACUTE RESPIRATORY FAILURE WITH HYPOXIA Status: Acute (3) Down's syndrome SNOMED Code(s): 66788856 ICD Code: Q90.9 - DOWN SYNDROME, UNSPECIFIED Status: Chronic - Patient Summary/Data Hospital Course: Soumya presented to the emergency room on January 06 with fever, cough, shortness of breath and weakness. Workup in the emergency room revealed mild leukocytosis and x-ray revealed evidence for bilateral lower lung pneumonia. She was hypoxic in the emergency room and required supplemental oxygen. Cultures were obtained and she was started on ceftriaxone and azithromycin and admitted to the hospital for further management. Over the next few days there was a seemingly improvement with a decrease in her white blood cell count and initially an improvement in her fever curve. Symptomatically she was feeling a little better but continued to require fair amount of supplemental oxygen and often needed between 3 and 3.5 liters per minute. She did start to have some additional fevers so we elected to change antibiotics at this point. Since the antibiotic change she has made more steady improvement. Her fevers have resolved. Symptomatically she is healing much better. Her cough has been more productive and oxygenation steadily improved. Appetite has been improving. Strength has been improving. She is now off supplemental oxygen and maintained normal oxygen saturations even with activity. Her cultures have all been negative. I believe she is safe for discharge home at this time. She will need for additional days of antibiotic therapy with levofloxacin. She has follow-up scheduled in just over a week. She does not require supplemental oxygen at the time of discharge. We did note some overnight oxygen desaturations and she may benefit from testing for sleep apnea once her pneumonia has cleared. - Patient Instructions Diet: Regular Diet as Tolerated Activity: As Tolerated Showering/Bathing: May Shower Notify Provider of: Fever, Increased Pain, Nausea and/or Vomiting Other/Special Instructions: 1. You were in the hospital for management of bilateral pneumonia complicated by acute respiratory failure with hypoxia. Your condition has been improving with antibiotic therapy. You no longer require supplemental oxygen. You will need additional antibiotic coverage. Please take levofloxacin 750 mg once daily in the morning for 4 doses. Your next dose is due tomorrow morning. 2. Continue your other home medications as previously prescribed. 3. Follow up as scheduled with Dr. La in early January - Discharge Plan *PRESCRIPTION DRUG MONITORING PROGRAM REVIEWED*: No *COPY OF PRESCRIPTION DRUG MONITORING REPORT IN PATIENT SOPHIE: No Prescriptions/Med Rec: Levofloxacin 750 mg PO DAILY #4 tablet Home Medications: Home Meds Cetirizine [ZyrTEC] 10 mg PO DAILY 04/28/18 [History] Fluticasone Propionate 2 spray NS DAILY 04/28/18 [History] Krill Oil 500 mg PO BID 04/28/18 [History] Levothyroxine [Synthroid] 100 mcg PO DAILY 04/28/18 [History] Montelukast [Singulair] 10 mg PO DAILY 04/28/18 [History] Albuterol Sulfate [Proair Hfa] 2 puff IH QID 01/06/19 [History] Ascorbic Acid 500 mg PO BID 01/06/19 [History] Calc/D3/Mag/Zn/[employer] [employer] [facility]/[place] [Calcium 600 MG Plus Vit D] 1 tab PO BID 01/06/19 [History] Diclofenac Sodium [Voltaren] 100 gm TP ASDIRECTED 01/06/19 [History] Ibuprofen [Advil] 200 mg PO Q6HR PRN 01/06/19 [History] Magnesium Amino Acid Chelate [Magnesium] 84 mg PO BID 01/06/19 [History] Mineral Oil [Mineral Oil Heavy] 1 ml MC ASDIRECTED 01/06/19 [History] Multivit &Minerals/Ferrous Fum [Multivitamin Liquid] 1 tab-cap PO DAILY [History] Nystatin [Nystatin Crm] 1 appful TOP BID 01/06/19 [History] Triamcinolone Acetonide [Triamcinolone Acetonide 0.1% Crm] 1 dose TOP BID [History] diazePAM [Valium] 5 mg PO ASDIRECTED PRN 01/06/19 [History] Levofloxacin 750 mg PO DAILY #4 tablet 01/13/19 [Rx] Oxygen Therapy Mode: Room Air Patient Handouts: Levofloxacin tablets, Community-Acquired Pneumonia, Adult, [id number] Referrals: Walt La MD [Primary Care Provider] - 01/22/19 1:30 pm - Discharge Summary/Plan Comment DC Time >30 min.: No - Patient Data Vitals - Most Recent: Last Vital Signs Temp 36.3 C 01/13/19 07:50 Pulse 84 01/13/19 07:50 Resp 30 H 01/13/19 07:50 BP 119/66 01/13/19 07:50 Pulse Ox 97 01/13/19 07:50 Weight - Most Recent: 68.946 kg Med Orders - Current: Current Medications Acetaminophen (Tylenol) 650 mg PO Q4H PRN PRN Reason: Pain (Mild 1-3)/fever Last Admin: 01/12/19 12:35 Dose: 650 mg Albuterol (Proventil Neb Soln) 2.5 mg NEB Q4H PRN PRN Reason: Shortness Of Breath/wheezing Last Admin: 01/11/19 00:44 Dose: 2.5 mg Albuterol/Ipratropium (Duoneb 3.0-0.5 Mg/3 Ml) 3 ml NEB QIDRT [facility] Last Admin: 01/13/19 07:11 Dose: 3 ml Benzocaine/Menthol (Cepacol Sore Throat) 1 lozenge MUCMEM Q2H PRN PRN Reason: Sore Throat Cetirizine HCl (Zyrtec) 10 mg PO DAILY [facility] Last Admin: 01/13/19 09:03 Dose: 10 mg Diazepam (Valium.) 5 mg PO Q6H PRN PRN Reason: Anxiety Last Admin: 01/10/19 20:36 Dose: 5 mg Enoxaparin Sodium (Lovenox) 40 mg SUBCUT Q24H [facility] Last Admin: 01/12/19 17:14 Dose: 40 mg Fluticasone Propionate (Flonase) 0 gm NASBOTH DAILY [facility] Last Admin: 01/13/19 09:01 Dose: 2 sprays Guaifenesin (Mucinex) 600 mg PO TID [facility] Last Admin: 01/13/19 09:01 Dose: 600 mg Ibuprofen (Motrin) 400 mg PO Q6H PRN PRN Reason: Fever Last Admin: 01/12/19 02:50 Dose: 400 mg Lactobacillus Rhamnosus (Culturelle) 1 cap PO BID [facility] Last Admin: 01/13/19 09:01 Dose: 1 cap Levofloxacin 250 mg/ (Levofloxacin 500 mg) 750 mg PO ACBREAKFAST [facility] Last Admin: 01/13/19 07:34 Dose: 750 mg Levothyroxine Sodium (Synthroid) 100 mcg PO DAILY@0730 [facility] Last Admin: 01/13/19 07:34 Dose: 100 mcg Magnesium Oxide (Magnesium Oxide) 400 mg PO BID [facility] Last Admin: 01/13/19 09:01 Dose: 400 mg Melatonin (Melatonin) 6 mg PO BEDTIME PRN PRN Reason: Insomnia Last Admin: 01/11/19 00:44 Dose: 6 mg Montelukast Sodium (Singulair) 10 mg PO DAILY [facility] Last Admin: 01/13/19 09:03 Dose: 10 mg Nystatin (Nystatin Crm) 0 gm TOP BID [facility] Last Admin: 01/13/19 09:02 Dose: 1 applic Ondansetron HCl (Zofran Odt) 4 mg PO Q4H PRN PRN Reason: Nausea/Vomiting Polyethylene Glycol (Miralax) 17 gm PO DAILY PRN PRN Reason: Constipation Sodium Chloride (Saline Flush) 10 ml FLUSH ASDIRECTED PRN PRN Reason: Keep Vein Open Triamcinolone Acetonide (Triamcinolone Acetonide 0.1% Crm) 0 gm TOP BID [facility] Last Admin: 01/13/19 09:03 Dose: 1 applic Discontinued Medications Azithromycin (Zithromax) 500 mg PO QPM [facility] Last Admin: 01/10/19 17:08 Dose: 500 mg Cefdinir (Omnicef) 300 mg PO BID [facility] Last Admin: 01/10/19 13:32 Dose: 300 mg Diazepam (Valium.) 5 mg PO ONETIME PRN PRN Reason: Anxiety Last Admin: 01/09/19 01:19 Dose: 5 mg Diazepam (Valium.) 5 mg PO ONETIME ONE Stop: 01/09/19 22:09 Last Admin: 01/09/19 23:44 Dose: Not Given Guaifenesin/Codeine Phosphate (Robitussin Ac) 10 ml PO Q4H PRN PRN Reason: Cough Last Admin: 01/09/19 05:58 Dose: 10 ml Guaifenesin/Dextromethorphan (Robitussin Dm) 10 ml PO TID [facility] Last Admin: 01/10/19 08:28 Dose: 10 ml Lactated Ringer's (Ringers, Lactated) 1,000 mls @ 1,000 mls/hr IV BOLUS ONE Stop: 01/06/19 14:33 Last Admin: 01/06/19 13:44 Dose: 1,000 mls/hr Ceftriaxone Sodium 1 gm/ (Sodium Chloride) 50 mls @ 100 mls/hr IV ONETIME ONE Stop: 01/06/19 14:17 Last Admin: 01/06/19 14:00 Dose: 100 mls/hr Azithromycin 500 mg/ Sodium (Chloride) 250 mls @ 250 mls/hr IV Q24H [facility] Last Admin: 01/07/19 16:19 Dose: 250 mls/hr Ceftriaxone Sodium 1 gm/ (Sodium Chloride) 50 mls @ 100 mls/hr IV Q24H [facility] Last Admin: 01/09/19 14:05 Dose: 100 mls/hr Sodium Chloride (Normal Saline) 1,000 mls @ 100 mls/hr IV ASDIRECTED [facility] Last Admin: 01/07/19 04:47 Dose: 100 mls/hr Sodium Chloride (Normal Saline) 1,000 mls @ 50 mls/hr IV ASDIRECTED [facility] Last Admin: 01/08/19 11:55 Dose: 50 mls/hr Ondansetron HCl (Zofran Odt) 4 mg PO ONETIME ONE Stop: 01/06/19 13:11 Last Admin: 01/06/19 13:16 Dose: 4 mg Ondansetron HCl (Zofran) 4 mg IV Q4H PRN PRN Reason: Nausea/Vomiting Potassium Chloride (Klor-Con M20) 40 meq PO ONETIME ONE Stop: 01/07/19 10:01 Last Admin: 01/07/19 11:13 Dose: 40 meq Sodium Chloride (Saline Flush) 10 ml FLUSH ASDIRECTED PRN PRN Reason: Keep Vein Open Last Admin: 01/06/19 13:16 Dose: 10 ml - Exam Quality Assessment: Denies: Supplemental Oxygen General: Reports: Alert, Cooperative, No Acute Distress Lungs: Reports: Normal Respiratory Effort, Crackles (rare left lung base) GI/Abdominal Exam: Soft, No Distention Extremities: No Pedal Edema Psy/Mental Status: Reports: Alert, Normal Affect
== END 2019-01-13 10:57 | disposition home or self-care (01) | DRG 193 ==
LOC: JP.ED 12:33 → JP.MS 14:15
PROVIDERS: ADMIT Hospitalist; ATTEND Internal Medicine
DX: J18.1 Lobar pneumonia, unspecified organism (principal); R05 Cough; J96.01 Acute respiratory failure with hypoxia; R50.9 Fever, unspecified; R55 Syncope and collapse; R10.9 Unspecified abdominal pain; R11.2 Nausea with vomiting, unspecified; H54.7 Unspecified visual loss; Q90.9 Down syndrome, unspecified; R32 Unspecified urinary incontinence; M19.90 Unspecified osteoarthritis, unspecified site; G30.0 Alzheimer's disease with early onset; F02.80 Dementia in other diseases classified elsewhere, unspecified severity, without behavioral disturbance, psychotic disturbance, mood disturbance, and anxiety; F41.9 Anxiety disorder, unspecified; R53.81 Other malaise; R06.02 Shortness of breath; R06.00 Dyspnea, unspecified; R42 Dizziness and giddiness; K59.09 Other constipation; E03.9 Hypothyroidism, unspecified; Z88.0 Allergy status to penicillin; Z86.73 Personal history of transient ischemic attack (TIA), and cerebral infarction without residual deficits; Z90.49 Acquired absence of other specified parts of digestive tract; Z79.890 Hormone replacement therapy; Z79.899 Other long term (current) drug therapy
CPT/HCPCS: 36415; 71046; 80048; 85027; 87040 ×2; 96361; 96374; 99284; 99285; A9270; J0696; J7050; J7120; 81001; 85025; 87086; 94640; 94667; 94668; 94762; J0456; J1650; J7030; J7620-GY

== ENCOUNTER 2019-01-16 10:51 | Emergency (ER) | payer MEDICARE, MEDICAID ==
[2019-01-16 11:18] VITALS: BP 127/46; PULSE 59
--- NOTE | 2019-01-16 11:39 | EDM.PDOC ---
ED HPI GENERAL MEDICAL PROBLEM - General Chief Complaint: Cardiovascular Problem Stated Complaint: CAME FROM CLINIC STILL HAS COLD Time Seen by Provider: 01/16/19 11:25 Source of Information: Reports: Patient, Provider History Limitations: Reports: Language Barrier (Patient is a 53-year-old Down syndrome patient who has difficulty communicating her symptoms) - History of Present Illness INITIAL COMMENTS - FREE TEXT/NARRATIVE: 53-year-old Down's patient who is being treated for bilateral pneumonia with antibiotics woke this morning and was complaining of some chest discomfort. She went into the clinic to discuss her symptoms, an EKG was done which showed "Q waves and T-wave changes" so she was sent to the emergency room. Patient has some difficulty communicating her symptoms but she does say that the chest has been bothering her since she woke up this morning. Still doing well with her breathing. Denies nausea or vomiting. Onset: Unknown/Unsure Associated Symptoms: Reports: Chest Pain, Cough. Denies: Loss of Appetite, Nausea/Vomiting, Shortness of Breath, Weakness Chest Pain Score (Numeric/FACES): 0 - Related Data Allergies Allergy/AdvReac Type Severity Reaction Status Date / Time Penicillins Allergy Hives Verified 01/06/19 12:53 Home Meds: Home Meds Cetirizine [ZyrTEC] 10 mg PO DAILY 04/28/18 [History] Fluticasone Propionate 2 spray NS DAILY 04/28/18 [History] Krill Oil 500 mg PO BID 04/28/18 [History] Levothyroxine [Synthroid] 100 mcg PO DAILY 04/28/18 [History] Montelukast [Singulair] 10 mg PO DAILY 04/28/18 [History] Albuterol Sulfate [Proair Hfa] 2 puff IH QID 01/06/19 [History] Ascorbic Acid 500 mg PO BID 01/06/19 [History] Calc/D3/Mag/Zn/Pattern Carrier/[place] [Calcium 600 MG Plus Vit D] 1 tab PO BID 01/06/19 [History] Diclofenac Sodium [Voltaren] 100 gm TP ASDIRECTED 01/06/19 [History] Ibuprofen [Advil] 200 mg PO Q6HR PRN 01/06/19 [History] Magnesium Amino Acid Chelate [Magnesium] 84 mg PO BID 01/06/19 [History] Mineral Oil [Mineral Oil Heavy] 1 ml MC ASDIRECTED 01/06/19 [History] Multivit &Minerals/Ferrous Fum [Multivitamin Liquid] 1 tab-cap PO DAILY [History] Nystatin [Nystatin Crm] 1 appful TOP BID 01/06/19 [History] Triamcinolone Acetonide [Triamcinolone Acetonide 0.1% Crm] 1 dose TOP BID [History] diazePAM [Valium] 5 mg PO ASDIRECTED PRN 01/06/19 [History] Levofloxacin 750 mg PO DAILY #4 tablet 01/13/19 [Rx] Past Medical History HEENT History: Reports: Impaired Vision Gastrointestinal History: Reports: Chronic Constipation Genitourinary History: Reports: Urinary Incontinence Musculoskeletal History: Reports: Arthritis Neurological History: Reports: TIA Psychiatric History: Reports: Anxiety Endocrine/Metabolic History: Reports: Hypothyroidism - Infectious Disease History Infectious Disease History: Reports: Chicken Pox - Past Surgical History GI Surgical History: Reports: None Social & Family History - Caffeine Use Caffeine Use: Reports: Coffee, Soda ED ROS GENERAL - Review of Systems Review Of Systems: See Below Constitutional: Denies: Fever, Chills HEENT: Reports: No Symptoms Respiratory: Reports: Cough. Denies: Shortness of Breath, Pleuritic Chest Pain Cardiovascular: Reports: Chest Pain. Denies: Palpitations GI/Abdominal: Denies: Abdominal Pain, Nausea, Vomiting Skin: Reports: No Symptoms Neurological: Denies: Headache ED EXAM, GENERAL - Physical Exam Exam: See Below Exam Limited By: No Limitations General Appearance: Alert, No Apparent Distress Head: Atraumatic Respiratory/Chest: No Respiratory Distress, Lungs Clear Cardiovascular: Regular Rate, Rhythm GI/Abdominal: Soft, Non-Tender Neurological: Alert Skin Exam: Warm, Dry EKG INTERPRETATION Rhythm: NSR Course - Vital Signs Last Recorded V/S: Last Vital Signs Temp 98.7 F 01/16/19 11:14 Pulse 59 L 01/16/19 11:14 Resp 20 01/16/19 11:14 BP 127/46 L 01/16/19 11:14 Pulse Ox 96 01/16/19 11:14 - Orders/Labs/Meds Labs: Laboratory Tests 01/16/19 Range/Units 10:56 Troponin I < 0.017 (0.000-0.056) ng/mL - Re-Assessments/Exams Free Text/Narrative Re-Assessment/Exam: 01/16/19 13:13 EKG was obtained and shows normal sinus rhythm. I do not appreciate T-wave inversion or Q waves. I could not find a previous EKG to compare. I did review her recent hospitalization, she had significant bilateral pneumonia with hypoxia which seems to have resolved. Her lungs are now clear and O2 sats are normal. She has no shortness of breath. Troponin was drawn which was 0. She'll be discharged and will follow-up with the clinic for a postoperative visit as originally scheduled. Departure - Departure Time of Disposition: 12:12 Disposition: Home, Self-Care 01 Clinical Impression: Atypical chest pain Instructions: Nonspecific Chest Pain Referrals: Walt La MD [Primary Care Provider] - Forms: ED Department Discharge Care Plan Goals: Continue current activity and medications. Recheck as scheduled. Return sooner if worsening or concerns.
== END 2019-01-16 12:11 | disposition home or self-care (01) ==
LOC: JP.ED 10:51
DX: R07.89 Other chest pain (principal); F41.9 Anxiety disorder, unspecified; E03.9 Hypothyroidism, unspecified; Z88.0 Allergy status to penicillin; Z86.73 Personal history of transient ischemic attack (TIA), and cerebral infarction without residual deficits; Z79.899 Other long term (current) drug therapy
CPT/HCPCS: 36415; 84484; 99285-25

== ENCOUNTER 2020-03-30 11:59 | Emergency (ER) | payer MEDICARE, MEDICAID ==
[2020-03-30] MEDS ORDERED: Morphine 4 MG/ML Syringe IVPUSH PRN (12:29)
[2020-03-30] MEDS ORDERED: Aspirin 81 MG Tab.Chew PO ONE (12:29)
[2020-03-30] MEDS ORDERED: Sodium Chloride 0.9% 10 ML Syringe FLUSH PRN (12:29)
[2020-03-30] MEDS ORDERED: Nitroglycerin 0.4 MG Tab.SL SL PRN (12:29)
--- NOTE | 2020-03-30 12:33 | EDM.PDOC ---
ED HPI GENERAL MEDICAL PROBLEM - General Chief Complaint: Cardiovascular Problem Stated Complaint: CHEST PAIN Time Seen by Provider: 03/30/20 12:25 Source of Information: Reports: Patient, Family, RN Notes Reviewed History Limitations: Reports: No Limitations - History of Present Illness INITIAL COMMENTS - FREE TEXT/NARRATIVE: -54-year-old female presents emergency department with a complaint of chest pain, she was exercising this morning developed sudden onset of chest pain that went through her back was short of breath and diaphoretic no nausea or vomiting, started at 1130 this morning. She has no known history of heart disease she is a member of a [employer]. Does have a history of Down syndrome has difficulty following some of the directions states she still having pain now though - Related Data Allergies Allergy/AdvReac Type Severity Reaction Status Date / Time Penicillins Allergy Hives Verified 03/30/20 12:14 Home Meds: Home Meds Cetirizine [ZyrTEC] 10 mg PO DAILY 04/28/18 [History] Fluticasone Propionate 2 spray NS DAILY 04/28/18 [History] Krill Oil 500 mg PO BID 04/28/18 [History] Levothyroxine [Synthroid] 100 mcg PO DAILY 04/28/18 [History] Montelukast [Singulair] 10 mg PO DAILY 04/28/18 [History] Albuterol Sulfate [Proair Hfa] 2 puff IH QID 01/06/19 [History] Ascorbic Acid 500 mg PO BID 01/06/19 [History] Calc/D3/Mag/Zn/Yared/[place] [Calcium 600 MG Plus Vit D] 1 tab PO BID 01/06/19 [History] Diclofenac Sodium [Voltaren] 100 gm TP ASDIRECTED 01/06/19 [History] Ibuprofen [Advil] 200 mg PO Q6HR PRN 01/06/19 [History] Magnesium Amino Acid Chelate [Magnesium] 84 mg PO BID 01/06/19 [History] Mineral Oil [Mineral Oil Heavy] 1 ml MC ASDIRECTED 01/06/19 [History] Multivit-Min/Ferrous Fumarate [Multivitamin Liquid] 1 tab-cap PO DAILY 01/06/19 [History] Nystatin [Nystatin Crm] 1 appful TOP BID 01/06/19 [History] Triamcinolone Acetonide [Triamcinolone Acetonide 0.1% Crm] 1 dose TOP BID 01/06/19 [History] diazePAM [Valium] 5 mg PO ASDIRECTED PRN 01/06/19 [History] Levofloxacin 750 mg PO DAILY #4 tablet 01/13/19 [Rx] Past Medical History HEENT History: Reports: Hard of Hearing, Impaired Vision Respiratory History: Reports: Other (See Below) Other Respiratory History: recent pnue Gastrointestinal History: Reports: Chronic Constipation Genitourinary History: Reports: Urinary Incontinence Musculoskeletal History: Reports: Arthritis Neurological History: Reports: Alzheimers Disease, TIA, Other (See Below) (Down syndrome) Psychiatric History: Reports: Anxiety Endocrine/Metabolic History: Reports: Hypothyroidism - Infectious Disease History Infectious Disease History: Reports: Chicken Pox - Past Surgical History Head Surgeries/Procedures: Reports: None HEENT Surgical History: Reports: Adenoidectomy, Tonsillectomy, Other (See Below) Other HEENT Surgeries/Procedures: ear surgery Respiratory Surgical History: Reports: None GI Surgical History: Reports: None Female Surgical History: Reports: D&C Endocrine Surgical History: Reports: None Neurological Surgical History: Reports: None Musculoskeletal Surgical History: Reports: None Dermatological Surgical History: Reports: None Social & Family History - Tobacco Use Tobacco Use Status *Q: Never Tobacco User Second Hand Smoke Exposure: No - Caffeine Use Caffeine Use: Reports: Coffee - Recreational Drug Use Recreational Drug Use: No ED ROS GENERAL - Review of Systems Review Of Systems: See Below Constitutional: Reports: Diaphoresis HEENT: Reports: No Symptoms Respiratory: Reports: Shortness of Breath Cardiovascular: Reports: Chest Pain, Dyspnea on Exertion GI/Abdominal: Reports: No Symptoms ED EXAM, GENERAL - Physical Exam Exam: See Below Exam Limited By: Physical Impairment General Appearance: Alert, WD/WN, No Apparent Distress Respiratory/Chest: No Respiratory Distress, Lungs Clear, Normal Breath Sounds, No Accessory Muscle Use, Chest Non-Tender Cardiovascular: Regular Rate, Rhythm, No Murmur GI/Abdominal: Soft, Non-Tender Course - Vital Signs Last Recorded V/S: Last Vital Signs Temp 96.9 F 03/30/20 12:09 Pulse 53 L 03/30/20 14:02 Resp 17 03/30/20 14:02 BP 126/73 03/30/20 14:02 Pulse Ox 96 03/30/20 14:02 - Orders/Labs/Meds Orders: Active Orders 24 hr Category Date Time Status Cardiac Monitoring [RC] .As Directed Care 03/30/20 12:29 Active EKG Documentation Completion [RC] ASDIRECTED Care 03/30/20 12:30 Active Peripheral IV Care [RC] . DIRECTED Care 03/30/20 12:30 Active Morphine Med 03/30/20 12:29 Active 4 mg IVPUSH Q10M PRN Nitroglycerin [Nitrostat] Med 03/30/20 12:29 Active 0.4 mg SL Q5M PRN Sodium Chloride 0.9% [Saline Flush] Med 03/30/20 12:29 Active 10 ml FLUSH ASDIRECTED PRN Peripheral IV Insertion Adult [OM.PC] Stat Oth 03/30/20 12:29 Ordered EKG 12 Lead [EK] Stat Ther 03/30/20 12:30 Ordered Medication Orders Morphine Sulfate (Morphine) 4 mg IVPUSH Q10M PRN PRN Reason: Chest Pain Stop: 03/31/20 12:29 Last Admin: 03/30/20 12:56 Dose: 4 mg Documented by: ORAL Nitroglycerin (Nitrostat) 0.4 mg SL Q5M PRN PRN Reason: Chest Pain Stop: 03/31/20 12:29 Sodium Chloride (Saline Flush) 10 ml FLUSH ASDIRECTED PRN PRN Reason: Keep Vein Open Last Admin: 03/30/20 12:58 Dose: 10 ml Documented by: ORAL Labs: Laboratory Tests 03/30/20 03/30/20 03/30/20 Range/Units 12:44 12:44 14:28 WBC 4.5 (4.5-11.0) K/uL RBC 4.12 (3.30-5.50) M/uL Hgb 13.3 D (12.0-15.0) g/dL Hct 40.4 (36.0-48.0) % MCV 98 (80-98) fL MCH 32 H (27-31) pg MCHC 33 (32-36) % Plt Count 329 (150-400) K/uL Neut % (Auto) 55 (36-66) % Lymph % (Auto) 32 (24-44) % [place] % (Auto) 11 H (2-6) % Eos % (Auto) 1 L (2-4) % Baso % (Auto) 2 H (0-1) % Sodium 135 L (140-148) mmol/L Potassium 4.2 (3.6-5.2) mmol/L Chloride 102 (100-108) mmol/L Carbon Dioxide 25 (21-32) mmol/L Anion Gap 12.2 (5.0-14.0) mmol/L BUN 17 D (7-18) mg/dL Creatinine 0.8 (0.6-1.0) mg/dL Est Cr Clr Drug Dosing 56.40 mL/min Estimated GFR (MDRD) > 60 (>60) Glucose 97 (74-106) mg/dL Calcium 8.2 L (8.5-10.1) mg/dL Total Bilirubin 0.2 (0.2-1.0) mg/dL AST 20 (15-37) U/L ALT 31 (12-78) U/L Alkaline Phosphatase 76 (46-116) U/L Troponin I < 0.017 < 0.017 (0.000-0.056) ng/mL Total Protein 6.3 L (6.4-8.2) g/dL Albumin 3.0 L (3.4-5.0) g/dL Globulin 3.3 (2.3-3.5) g/dL Albumin/Globulin Ratio 0.9 L (1.2-2.2) Meds: Medications Generic Name Dose Route Start Last Admin Trade Name Freq PRN Reason Stop Dose Admin Morphine Sulfate 4 mg 03/30/20 12:29 03/30/20 12:56 Morphine IVPUSH 03/31/20 12:29 4 mg Q10M PRN Administration Chest Pain Nitroglycerin 0.4 mg 03/30/20 12:29 Nitrostat SL 03/31/20 12:29 Q5M PRN Chest Pain Sodium Chloride 10 ml 03/30/20 12:29 03/30/20 12:58 Saline Flush FLUSH 10 ml ASDIRECTED PRN Administration Keep Vein Open Discontinued Medications Generic Name Dose Route Start Last Admin Trade Name Freq PRN Reason Stop Dose Admin Aspirin 324 mg 03/30/20 12:29 03/30/20 12:38 Aspirin PO 03/30/20 12:30 324 mg ONETIME ONE Administration - Re-Assessments/Exams Free Text/Narrative Re-Assessment/Exam: 03/30/20 13:13 Heart score is 2 places her at low risk Departure - Departure Time of Disposition: 15:26 Disposition: Home, Self-Care 01 Condition: Fair Clinical Impression: Atypical chest pain Instructions: Nonspecific Chest Pain, Adult Referrals: Madeleine Walker MD [Primary Care Provider] - Forms: ED Department Discharge Additional Instructions: Continue to use Tylenol or Motrin as needed for pain control please followup with your primary care provider in 3-5 days if not better, please call return to the emergency department with worsening of symptoms., Sepsis Event Note (ED) - Evaluation Sepsis Screening Result: No Definite Risk - Focused Exam Vital Signs: Vital Signs Temp Pulse Resp BP BP Pulse Ox 03/30/20 14:02 53 L 17 126/73 96 03/30/20 13:32 57 L 20 126/68 95 03/30/20 13:30 52 L 16 124/70 94 L 03/30/20 12:36 59 L 16 111/48 L 97 03/30/20 12:09 96.9 F 59 L 15 123/61 96 03/30/20 12:07 96.9 F 59 L 15 123/61 96 - My Orders Last 24 Hours: My Active Orders 03/30/20 12:29 Cardiac Monitoring [RC] .As Directed Morphine 4 mg IVPUSH Q10M PRN Nitroglycerin [Nitrostat] 0.4 mg SL Q5M PRN Sodium Chloride 0.9% [Saline Flush] 10 ml FLUSH ASDIRECTED PRN Peripheral IV Insertion Adult [OM.PC] Stat 03/30/20 12:30 EKG Documentation Completion [RC] ASDIRECTED Peripheral IV Care [RC] . DIRECTED EKG 12 Lead [EK] Stat - Assessment/Plan Last 24 Hours: My Active Orders 03/30/20 12:29 Cardiac Monitoring [RC] .As Directed Morphine 4 mg IVPUSH Q10M PRN Nitroglycerin [Nitrostat] 0.4 mg SL Q5M PRN Sodium Chloride 0.9% [Saline Flush] 10 ml FLUSH ASDIRECTED PRN Peripheral IV Insertion Adult [OM.PC] Stat 03/30/20 12:30 EKG Documentation Completion [RC] ASDIRECTED Peripheral IV Care [RC] . DIRECTED EKG 12 Lead [EK] Stat Plan: Assessment Acuity = acute Site and laterality = atypical chest pain Etiology = unknown Manifestations = none Location of injury = Home Lab values = CBC CMP troponin negative x2 EKG demonstrates a sinus rhythm no ST elevations or depressions, chest x-ray shows no acute process Plan I did review lab work EKG results with them continue to use Tylenol Motrin as needed for pain control follow-up primary care 3 to 5 days if not better This note was dictated using [employer] voice recognition software please call with any questions on syntax or grammar.
--- NOTE | 2020-03-30 14:12 | CR ---
CHEST: Portable 03/30/2020 at 1254 CLINICAL HISTORY:Chest pain COMPARISON:December 2018 FINDINGS: The heart size, pulmonary vascularity and hilar structures are normal. No infiltrate effusion or pneumothorax is seen. There are atherosclerotic changes in the aorta. IMPRESSION: No acute cardiopulmonary process.
[2020-03-30 14:13] VITALS: BP 126/73; PULSE 53
== END 2020-03-30 15:36 | disposition home or self-care (01) ==
LOC: JP.ED 11:59
DX: R07.89 Other chest pain (principal); R06.02 Shortness of breath; E03.9 Hypothyroidism, unspecified; Z88.0 Allergy status to penicillin; Z79.899 Other long term (current) drug therapy
CPT/HCPCS: 36415; 71045; 80053; 84484; 85025; 93005; 93010; 96374; 99284; 99285; A9270; J2270

== ENCOUNTER 2020-11-24 12:03 | Emergency (ER) | payer MEDICARE, MEDICAID ==
[2020-11-24 14:44] VITALS: BP 99/69; PULSE 56
--- NOTE | 2020-11-24 15:33 | EDM.PDOC ---
ED HPI GENERAL MEDICAL PROBLEM - General Chief Complaint: Respiratory Problem Stated Complaint: HEADACHE, CHEST HURTS, SOB ,FATIGUED Time Seen by Provider: 11/24/20 15:27 Source of Information: Reports: Patient, Family, RN Notes Reviewed History Limitations: Reports: Physical Impairment - History of Present Illness INITIAL COMMENTS - FREE TEXT/NARRATIVE: 54-year-old female with known history of Down syndrome presents emergency department day complaint of shortness of breath, states this was noticed by staff earlier this morning she had difficulty arousing thought to be short of breath was maybe complaining of chest pain though symptoms now have improved. Has had no fevers was feeling fine yesterday no cough no sputum production Throat Pain Score (Numeric/FACES): 7 - Related Data Allergies Allergy/AdvReac Type Severity Reaction Status Date / Time Penicillins Allergy Severe Hives Verified 11/24/20 14:45 Home Meds: Home Meds Cetirizine [ZyrTEC] 10 mg PO DAILY 04/28/18 [History] Fluticasone Propionate 2 spray NS DAILY 04/28/18 [History] Krill Oil 500 mg PO BID 04/28/18 [History] Levothyroxine [Synthroid] 100 mcg PO DAILY 04/28/18 [History] Montelukast [Singulair] 10 mg PO DAILY 04/28/18 [History] Ascorbic Acid 500 mg PO BID 01/06/19 [History] Calc/D3/Mag/Zn/Yared/Chandler/[place] [Calcium 600 MG Plus Vit D] 1 tab PO BID 01/06/19 [History] Diclofenac Sodium [Voltaren] 100 gm TP ASDIRECTED PRN 01/06/19 [History] Ibuprofen [Advil] 400 mg PO Q6HR PRN 01/06/19 [History] Magnesium Amino Acid Chelate [Magnesium] 84 mg PO BID 01/06/19 [History] Mineral Oil [Mineral Oil Heavy] 1 ml MC ASDIRECTED 01/06/19 [History] Multivit-Min/Ferrous Fumarate [Multivitamin Liquid] 1 tab-cap PO DAILY 01/06/19 [History] Nystatin [Nystatin Crm] 1 appful TOP BID 01/06/19 [History] Triamcinolone Acetonide [Triamcinolone Acetonide 0.1% Crm] 1 dose TOP BID PRN 01/06/19 [History] diazePAM [Valium.] 5 mg PO ASDIRECTED PRN 01/06/19 [History] Past Medical History HEENT History: Reports: Hard of Hearing, Impaired Vision Respiratory History: Reports: Other (See Below) Other Respiratory History: recent pnue Gastrointestinal History: Reports: Chronic Constipation Genitourinary History: Reports: Urinary Incontinence Musculoskeletal History: Reports: Arthritis Neurological History: Reports: Alzheimers Disease, TIA, Other (See Below) (Down syndrome) Psychiatric History: Reports: Anxiety Endocrine/Metabolic History: Reports: Hypothyroidism - Infectious Disease History Infectious Disease History: Reports: Chicken Pox - Past Surgical History Head Surgeries/Procedures: Reports: None HEENT Surgical History: Reports: Adenoidectomy, Tonsillectomy, Other (See Below) Other HEENT Surgeries/Procedures: ear surgery Respiratory Surgical History: Reports: None GI Surgical History: Reports: None Female Surgical History: Reports: D&C Endocrine Surgical History: Reports: None Neurological Surgical History: Reports: None Musculoskeletal Surgical History: Reports: None Dermatological Surgical History: Reports: None Social & Family History - Tobacco Use Tobacco Use Status *Q: Never Tobacco User - Caffeine Use Caffeine Use: Reports: Coffee ED ROS GENERAL - Review of Systems Review Of Systems: See Below Constitutional: Reports: No Symptoms HEENT: Reports: No Symptoms Respiratory: Reports: Shortness of Breath Cardiovascular: Reports: Chest Pain, Dyspnea on Exertion GI/Abdominal: Reports: No Symptoms ED EXAM, GENERAL - Physical Exam Exam: See Below Exam Limited By: Physical Impairment General Appearance: Alert, WD/WN, No Apparent Distress Respiratory/Chest: No Respiratory Distress, Lungs Clear, Normal Breath Sounds, No Accessory Muscle Use, Chest Non-Tender Cardiovascular: Regular Rate, Rhythm, No Murmur GI/Abdominal: Soft, Non-Tender #1 Interpretation EKG Date: 11/24/20 Time: 16:24 Rhythm: NSR [place]: Normal P-Wave: Present QRS: Normal ST-T: Normal QT: Normal Comparison: No Change Course - Vital Signs Last Recorded V/S: Last Vital Signs Temp 95.3 F L 11/24/20 14:42 Pulse 56 L 11/24/20 14:42 Resp 16 11/24/20 14:42 BP 99/69 11/24/20 14:42 Pulse Ox 99 11/24/20 14:42 - Orders/Labs/Meds Orders: Active Orders 24 hr Category Date Time Status Cardiac Monitoring [RC] .As Directed Care 11/24/20 15:31 Active Chest 2V [CR] Stat Exams 11/24/20 15:31 Taken EKG 12 Lead [EK] Stat Ther 11/24/20 15:31 Ordered Labs: Laboratory Tests 11/24/20 11/24/20 11/24/20 Range/Units 14:13 15:45 15:45 WBC 3.9 L (4.5-11.0) K/uL RBC 4.43 (3.30-5.50) M/uL Hgb 15.1 H (12.0-15.0) g/dL Hct 42.7 (36.0-48.0) % MCV 96 (80-98) fL MCH 34 H (27-31) pg MCHC 35 (32-36) % Plt Count 282 (150-400) K/uL Neut % (Auto) 47.9 (36-66) % Lymph % (Auto) 41.4 (24-44) % [place] % (Auto) 7.9 H (2-6) % Eos % (Auto) 1.5 L (2-4) % Baso % (Auto) 1.3 H (0-1) % Sodium 136 L (140-148) mmol/L Potassium 4.3 (3.6-5.2) mmol/L Chloride 100 (100-108) mmol/L Carbon Dioxide 27 (21-32) mmol/L Anion Gap 13.3 (5.0-14.0) mmol/L BUN 11 (7-18) mg/dL Creatinine 0.8 (0.6-1.0) mg/dL Est Cr Clr Drug Dosing 56.40 mL/min Estimated GFR (MDRD) > 60 (>60) Glucose 92 (74-106) mg/dL Lactic Acid (0.4-2.0) mmol/L Calcium 8.2 L (8.5-10.1) mg/dL Troponin I < 0.017 (0.000-0.056) ng/mL SARS CoV-2 RNA Rapid MORE Negative 11/24/20 Range/Units 15:45 WBC (4.5-11.0) K/uL RBC (3.30-5.50) M/uL Hgb (12.0-15.0) g/dL Hct (36.0-48.0) % MCV (80-98) fL MCH (27-31) pg MCHC (32-36) % Plt Count (150-400) K/uL Neut % (Auto) (36-66) % Lymph % (Auto) (24-44) % [place] % (Auto) (2-6) % Eos % (Auto) (2-4) % Baso % (Auto) (0-1) % Sodium (140-148) mmol/L Potassium (3.6-5.2) mmol/L Chloride (100-108) mmol/L Carbon Dioxide (21-32) mmol/L Anion Gap (5.0-14.0) mmol/L BUN (7-18) mg/dL Creatinine (0.6-1.0) mg/dL Est Cr Clr Drug Dosing mL/min Estimated GFR (MDRD) (>60) Glucose (74-106) mg/dL Lactic Acid 1.7 (0.4-2.0) mmol/L Calcium (8.5-10.1) mg/dL Troponin I (0.000-0.056) ng/mL SARS CoV-2 RNA Rapid MORE Departure - Departure Time of Disposition: 16:27 Disposition: Home, Self-Care 01 Condition: Fair Clinical Impression: Atypical chest pain - Discharge Information Instructions: Nonspecific Chest Pain, Adult, [id number] Referrals: PCP,None [Primary Care Provider] - Forms: ED Department Discharge Additional Instructions: Continue with your regular medications, please followup with your primary care provider in 3-5 days if not better, please call return to the emergency department with worsening of symptoms. Sepsis Event Note (ED) - Evaluation Sepsis Screening Result: Possible Sepsis Risk - Focused Exam Vital Signs: Vital Signs Temp Pulse Resp BP Pulse Ox 11/24/20 14:42 95.3 F L 56 L 16 99/69 99 - My Orders Last 24 Hours: My Active Orders 11/24/20 15:31 Cardiac Monitoring [RC] .As Directed Chest 2V [CR] Stat EKG 12 Lead [EK] Stat - Assessment/Plan Last 24 Hours: My Active Orders 11/24/20 15:31 Cardiac Monitoring [RC] .As Directed Chest 2V [CR] Stat EKG 12 Lead [EK] Stat Plan: Assessment Acuity = acute Site and laterality = atypical chest pain complicated patient with known history of Down syndrome and prison resident Etiology = unknown Manifestations = none Location of injury = Home Lab values = CBC, BMP, troponin, lactic acid, chest x-ray, EKG all within normal limits Plan I did review lab work and x-ray results with caregiver, recommend continue with current medication symptomatic care as needed follow-up primary care 3 to 5 days if not better This note was dictated using [email or web address] voice recognition software please call with any questions on syntax or grammar.
--- NOTE | 2020-11-25 10:14 | CRLCR ---
Final Report: INDICATION: Chest pain. COMPARISON : 30 March 2020 TECHNIQUE: Two view chest. FINDINGS: The lungs are clear. The heart, mediastinum and pulmonary vessels are of normal size. There is no evidence of pleural disease. IMPRESSION: Negative chest. Dictated by Neeraj Cisneros MD @ 11/25/2020 9:59:21 AM (Electronic Signature) MTDD
== END 2020-11-24 16:55 | disposition home or self-care (01) ==
LOC: JP.ED 12:03
DX: R07.89 Other chest pain (principal); M19.90 Unspecified osteoarthritis, unspecified site; E03.9 Hypothyroidism, unspecified; G30.9 Alzheimer's disease, unspecified; F02.80 Dementia in other diseases classified elsewhere, unspecified severity, without behavioral disturbance, psychotic disturbance, mood disturbance, and anxiety; Z88.0 Allergy status to penicillin; Z79.899 Other long term (current) drug therapy; Z20.822 Contact with and (suspected) exposure to COVID-19
CPT/HCPCS: 36415; 71046; 80048; 83605; 84484; 85025; 93005; 99285; U0002

== ENCOUNTER 2021-02-23 11:07 | Emergency (ER) | payer MEDICARE, MEDICAID ==
[2021-02-23 12:11] VITALS: BP 106/67; PULSE 51
--- NOTE | 2021-02-23 12:46 | EDM.PDOC ---
ED HPI GENERAL MEDICAL PROBLEM - General Chief Complaint: Syncope Stated Complaint: [facility] Time Seen by Provider: 02/23/21 11:25 Source of Information: Reports: Patient, EMS, Family History Limitations: Reports: No Limitations - History of Present Illness INITIAL COMMENTS - FREE TEXT/NARRATIVE: 55-year-old female with some chronic recurring chest discomfort, apparently had some back or chest discomfort earlier today, became lightheaded and then had an episode of syncope, unresponsive for up to 5 minutes and appeared pale and diaphoretic. EMS was called, on arrival she was still bradycardic and mildly hypotensive but alert. By the time she arrived to the emergency room she was stable, blood pressure was normal. They did check a glucose and run it was 132. No fevers or chills, no cough, denies nausea or vomiting or abdominal pain. Onset: Sudden Duration: Hour(s): (Episode happened about 1 hour ago, lasted up to 5 minutes) Location: Reports: Generalized Associated Symptoms: Reports: Other (Chest discomfort, syncope) - Related Data Allergies Allergy/AdvReac Type Severity Reaction Status Date / Time Penicillins Allergy Severe Hives Verified 02/23/21 11:16 Home Meds: Home Meds Cetirizine [ZyrTEC] 10 mg PO DAILY 04/28/18 [History] Fluticasone Propionate 2 spray NS DAILY 04/28/18 [History] Krill Oil 500 mg PO BID 04/28/18 [History] Levothyroxine [Synthroid] 100 mcg PO DAILY 04/28/18 [History] Montelukast [Singulair] 10 mg PO DAILY 04/28/18 [History] Calc/D3/Mag/Zn/[place]ared/[place] [Calcium 600 MG Plus Vit D] 1 tab PO BID 01/06/19 [History] Ibuprofen [Advil] 400 mg PO Q6HR PRN 01/06/19 [History] Magnesium Amino Acid Chelate [Magnesium] 84 mg PO BID 01/06/19 [History] Mineral Oil [Mineral Oil Heavy] 1 ml MC ASDIRECTED 01/06/19 [History] Multivit-Min/Ferrous Fumarate [Multivitamin Liquid] 1 tab-cap PO DAILY 01/06/19 [History] Nystatin [Nystatin Crm] 1 appful TOP BID 01/06/19 [History] Triamcinolone Acetonide [Triamcinolone Acetonide 0.1% Crm] 1 dose TOP BID PRN 01/06/19 [History] Past Medical History HEENT History: Reports: Hard of Hearing, Impaired Vision Respiratory History: Reports: Other (See Below) Other Respiratory History: recent pnue Gastrointestinal History: Reports: Chronic Constipation Genitourinary History: Reports: Urinary Incontinence Musculoskeletal History: Reports: Arthritis Neurological History: Reports: Alzheimers Disease, TIA, Other (See Below) Psychiatric History: Reports: Anxiety Endocrine/Metabolic History: Reports: Hypothyroidism - Infectious Disease History Infectious Disease History: Reports: Chicken Pox - Past Surgical History Head Surgeries/Procedures: Reports: None HEENT Surgical History: Reports: Adenoidectomy, Tonsillectomy, Other (See Below) Other HEENT Surgeries/Procedures: ear surgery Respiratory Surgical History: Reports: None GI Surgical History: Reports: None Female Surgical History: Reports: D&C Endocrine Surgical History: Reports: None Neurological Surgical History: Reports: None Musculoskeletal Surgical History: Reports: None Dermatological Surgical History: Reports: None Social & Family History - Tobacco Use Tobacco Use Status *Q: Never Tobacco User - Caffeine Use Caffeine Use: Reports: Coffee - Recreational Drug Use Recreational Drug Use: No ED ROS GENERAL - Review of Systems Review Of Systems: See Below Constitutional: Denies: Fever, Chills HEENT: Denies: Vision Change Respiratory: Denies: Shortness of Breath Cardiovascular: Reports: Chest Pain GI/Abdominal: Denies: Abdominal Pain, Nausea, Vomiting Musculoskeletal: Reports: Back Pain Skin: Reports: Pallor, Diaphoresis Neurological: Reports: Syncope, Weakness - Physical Exam Exam: See Below Exam Limited By: No Limitations General Appearance: Alert, No Apparent Distress Eye Exam: Bilateral Eye: Normal Inspection Head Exam: Atraumatic Neck: Supple, Non-Tender Respiratory/Chest: Lungs Clear Cardiovascular: Regular Rate, Rhythm, Bradycardia GI/Abdominal: Soft, Non-Tender Neuro Exam (Abbreviated): Alert, Oriented, No Motor/Sensory Deficits Extremities: Normal Inspection Psychiatric: Normal Affect, Normal Mood Skin Exam: Warm, Dry Course - Vital Signs Last Recorded V/S: Last Vital Signs Temp 98.0 F 02/23/21 11:10 Pulse 51 L 02/23/21 12:08 Resp 18 02/23/21 12:08 BP 106/67 02/23/21 12:08 Pulse Ox 98 02/23/21 12:08 - Orders/Labs/Meds Labs: Laboratory Tests 02/23/21 02/23/21 Range/Units 12:03 12:03 WBC 6.5 (4.5-11.0) K/uL RBC 4.37 (3.30-5.50) M/uL Hgb 14.3 (12.0-15.0) g/dL Hct 42.2 (36.0-48.0) % MCV 97 (80-98) fL MCH 33 H (27-31) pg MCHC 34 (32-36) % Plt Count 335 (150-400) K/uL Neut % (Auto) 74.4 H (36-66) % Lymph % (Auto) 13.6 L (24-44) % [place] % (Auto) 10.2 H (2-6) % Eos % (Auto) 0.9 L (2-4) % Baso % (Auto) 0.9 (0-1) % Sodium 136 L (140-148) mmol/L Potassium 4.3 (3.6-5.2) mmol/L Chloride 101 (100-108) mmol/L Carbon Dioxide 28 (21-32) mmol/L Anion Gap 11.3 (5.0-14.0) mmol/L BUN 15 (7-18) mg/dL Creatinine 0.9 (0.6-1.0) mg/dL Est Cr Clr Drug Dosing 49.54 mL/min Estimated GFR (MDRD) > 60 (>60) Glucose 66 L (74-106) mg/dL Calcium 8.4 L (8.5-10.1) mg/dL Troponin I High Sens 4.8 (<=60.3) pg/mL - Re-Assessments/Exams Free Text/Narrative Re-Assessment/Exam: 02/23/21 13:03 Patient was kept on cardiac monitoring and remained in a normal sinus bradycardia. Blood pressure normalized and was stable, labs returned reassuring other than a glucose of 66 so she was given some juice. She is not diabetic and is not on medications for glucose control. I do not think this was the initiation of her symptoms. If she has more episodes of vasovagal-like near syncope or syncope, a Holter monitor may be worthwhile prior to her cataract procedures. Departure - Departure Time of Disposition: 13:17 Disposition: Home, Self-Care 01 Clinical Impression: Vasovagal syncope - Discharge Information Instructions: Syncope, [id number] Referrals: Madeleine Walker MD [Primary Care Provider] - Forms: ED Department Discharge Care Plan Goals: If symptoms are recurring, call her primary provider to set up a Holter monitor for closer observation or return to the emergency room if the symptoms are persistent. Otherwise continue her regular medications. Sepsis Event Note (ED) - Evaluation Sepsis Screening Result: No Definite Risk
== END 2021-02-23 13:20 | disposition home or self-care (01) ==
LOC: JP.ED 11:07
DX: R55 Syncope and collapse (principal); G30.9 Alzheimer's disease, unspecified; F02.80 Dementia in other diseases classified elsewhere, unspecified severity, without behavioral disturbance, psychotic disturbance, mood disturbance, and anxiety; E03.9 Hypothyroidism, unspecified; Z88.0 Allergy status to penicillin; Z79.899 Other long term (current) drug therapy
CPT/HCPCS: 36415; 80048; 84484; 85025; 99284

== ENCOUNTER 2021-07-29 18:10 | Emergency (ER) | payer MEDICARE, MEDICAID ==
[2021-07-29 18:26] VITALS: BP 120/72; PULSE 66
== END 2021-07-29 20:18 | disposition home health service (06) ==
LOC: JP.ED 18:10
DX: G43.109 Migraine with aura, not intractable, without status migrainosus (principal); E03.9 Hypothyroidism, unspecified; R27.0 Ataxia, unspecified; R41.3 Other amnesia; Q90.9 Down syndrome, unspecified; Z86.73 Personal history of transient ischemic attack (TIA), and cerebral infarction without residual deficits; Z88.0 Allergy status to penicillin; Z79.899 Other long term (current) drug therapy
CPT/HCPCS: 36415; 70450; 80053; 81001; 85025; 85610; 85730; 99283; 99284-25

== ENCOUNTER 2021-10-01 16:12 | Inpatient (IN) | payer MEDICARE, MEDICAID ==
[2021-10-01] MEDS ORDERED: Sodium Chloride 0.9% 1,000 ML IV SCH (16:30)
[2021-10-01 17:08] LABS: ESTIMATED GFR 86 mL/min (>60)
[2021-10-01] MEDS: methylPREDNISolone Sodium Succinate 125 MG/2 ML SDV IVPUSH SCH (17:18)
[2021-10-01] MEDS: cefTRIAXone 1 GM in Sodium Chloride 0.9% 50 ML IV SCH (17:21)
[2021-10-01] MEDS ORDERED: LORazepam 2 MG/ML SDV IV PRN (17:58)
[2021-10-01] MEDS ORDERED: Magnesium Hydroxide 400 MG/5 ML Susp 30 ML Cup PO PRN (17:58)
[2021-10-01] MEDS ORDERED: Acetaminophen/HYDROcodone 325-5 MG Tab PO PRN (17:58)
[2021-10-01] MEDS ORDERED: Albuterol 0.083% 2.5 MG/3 ML Neb Soln NEB PRN (17:58)
[2021-10-01] MEDS ORDERED: Ondansetron 4 MG/2 ML SDV IV PRN (17:58)
[2021-10-01] MEDS ORDERED: Docusate Sodium 100 MG Cap PO PRN (17:58)
[2021-10-01] MEDS ORDERED: Temazepam 15 MG Cap PO PRN (17:58)
[2021-10-01] MEDS ORDERED: Acetaminophen 325 MG Tab PO PRN (17:58)
[2021-10-01] MEDS: Azithromycin 500 MG in Sodium Chloride 0.9% 250 ML IV SCH (18:10)
[2021-10-01] MEDS ORDERED: Triamcinolone Acetonide 0.1% Crm 15 GM Tube TOP PRN (18:15)
[2021-10-01] MEDS ORDERED: IBUPROFEN 200 MG PO PRN (18:15)
[2021-10-01] MEDS ORDERED: LORazepam 0.5 MG Tab PO SCH (18:15)
[2021-10-01] MEDS: Albuterol/Ipratropium 3.0-0.5 MG/3 ML Neb Soln NEB SCH (19:00)
[2021-10-01] MEDS: Enoxaparin 40 MG/0.4 ML Syringe SUBCUT SCH (20:19)
[2021-10-01] MEDS: Dextrose 5%-0.45% NaCl 1,000 ML IV SCH (20:19)
[2021-10-01] MEDS: [UNRECOGNIZED DRUG - OTHER] PO SCH (21:39)
[2021-10-01] MEDS: CALC PO SCH (21:39)
[2021-10-01] MEDS: MANG PO SCH (21:39)
[2021-10-01] MEDS: D3 PO SCH (21:39)
[2021-10-01] MEDS: BORON PO SCH (21:39)
[2021-10-01] MEDS: BETAMETHASONE VALERATE TOP SCH (21:39)
[2021-10-01] MEDS: Nystatin Crm 15 GM Tube TOP SCH (21:39)
[2021-10-01] MEDS: MAG PO SCH (21:39)
[2021-10-01] MEDS: Ascorbic Acid 500 MG Tab PO SCH (21:39)
[2021-10-01] MEDS: COPP PO SCH (21:39)
[2021-10-02 05:37] LABS: TROPONIN I HIGH SENSITIVITY 6.5 pg/mL (<=60.3)
[2021-10-02] MEDS: Albuterol/Ipratropium 3.0-0.5 MG/3 ML Neb Soln NEB SCH ×5 (05:39→23:40)
[2021-10-02] MEDS ORDERED: [UNRECOGNIZED DRUG - OTHER] NS SCH (09:00)
[2021-10-02] MEDS ORDERED: Ibuprofen 400 MG Tab PO PRN (09:47)
[2021-10-02] MEDS: Fluticasone NASAL Spray 16 GM Bottle NASBOTH SCH (10:34)
[2021-10-02] MEDS: Montelukast 10 MG Tab PO SCH (10:35)
[2021-10-02] MEDS: Ascorbic Acid 500 MG Tab PO SCH ×2 (10:35→20:42)
[2021-10-02] MEDS: Cetirizine 10 MG Tab PO SCH (10:35)
[2021-10-02] MEDS: methylPREDNISolone Sodium Succinate 125 MG/2 ML SDV IVPUSH SCH (10:35)
[2021-10-02] MEDS: Levothyroxine 100 MCG Tab PO SCH (10:35)
[2021-10-02] MEDS: Nystatin Crm 15 GM Tube TOP SCH ×2 (10:36→20:34)
[2021-10-02] MEDS: COPP PO SCH (10:40)
[2021-10-02] MEDS: MAG PO SCH (10:40)
[2021-10-02] MEDS: D3 PO SCH (10:40)
[2021-10-02] MEDS: [UNRECOGNIZED DRUG - OTHER] PO SCH (10:40)
[2021-10-02] MEDS: MANG PO SCH (10:40)
[2021-10-02] MEDS: BORON PO SCH (10:40)
[2021-10-02] MEDS: CALC PO SCH (10:40)
[2021-10-02] MEDS: Enoxaparin 40 MG/0.4 ML Syringe SUBCUT SCH (10:40)
[2021-10-02] MEDS: BETAMETHASONE VALERATE TOP SCH ×2 (11:25→20:34)
[2021-10-02] MEDS: Azithromycin 500 MG in Sodium Chloride 0.9% 250 ML IV SCH (16:42)
[2021-10-02] MEDS: cefTRIAXone 1 GM in Sodium Chloride 0.9% 50 ML IV SCH (18:21)
[2021-10-03] MEDS: Dextrose 5%-0.45% NaCl 1,000 ML IV SCH (02:45)
[2021-10-03] MEDS ORDERED: guaiFENesin 100 MG/5 ML Soln 10 ML UD Cup PO PRN (02:54)
[2021-10-03] MEDS ORDERED: Benzocaine/Cetylpyridinium/Menthol Lozenge MUCMEM PRN (02:55)
[2021-10-03] MEDS: Albuterol/Ipratropium 3.0-0.5 MG/3 ML Neb Soln NEB SCH ×3 (06:08→20:07)
[2021-10-03] MEDS: methylPREDNISolone Sodium Succinate 125 MG/2 ML SDV IVPUSH SCH (08:08)
[2021-10-03] MEDS: Ascorbic Acid 500 MG Tab PO SCH ×2 (08:09→20:08)
[2021-10-03] MEDS: Fluticasone NASAL Spray 16 GM Bottle NASBOTH SCH (08:10)
[2021-10-03] MEDS: BETAMETHASONE VALERATE TOP SCH ×2 (08:10→20:06)
[2021-10-03] MEDS: Levothyroxine 100 MCG Tab PO SCH (08:10)
[2021-10-03] MEDS: Cetirizine 10 MG Tab PO SCH (08:10)
[2021-10-03] MEDS: Nystatin Crm 15 GM Tube TOP SCH ×2 (08:11→20:06)
[2021-10-03] MEDS: Enoxaparin 40 MG/0.4 ML Syringe SUBCUT SCH (08:11)
[2021-10-03] MEDS: Montelukast 10 MG Tab PO SCH (08:11)
[2021-10-03] MEDS: Azithromycin 500 MG in Sodium Chloride 0.9% 250 ML IV SCH (16:23)
[2021-10-03] MEDS: cefTRIAXone 1 GM in Sodium Chloride 0.9% 50 ML IV SCH (17:41)
[2021-10-04] MEDS: Albuterol/Ipratropium 3.0-0.5 MG/3 ML Neb Soln NEB SCH ×2 (01:18→07:17)
[2021-10-04 08:23] VITALS: BP 133/91; PULSE 71
[2021-10-04] MEDS: Nystatin Crm 15 GM Tube TOP SCH (08:39)
[2021-10-04] MEDS: BETAMETHASONE VALERATE TOP SCH (08:39)
[2021-10-04] MEDS ORDERED: methylPREDNISolone Sodium Succinate 40 MG/1 ML SDV IVPUSH SCH (09:00)
[2021-10-04] MEDS: Enoxaparin 40 MG/0.4 ML Syringe SUBCUT SCH (09:03)
[2021-10-04] MEDS: Montelukast 10 MG Tab PO SCH (09:04)
[2021-10-04] MEDS: Levothyroxine 100 MCG Tab PO SCH (09:04)
[2021-10-04] MEDS: Ascorbic Acid 500 MG Tab PO SCH (09:05)
[2021-10-04] MEDS: Cetirizine 10 MG Tab PO SCH (09:05)
[2021-10-04] MEDS: Fluticasone NASAL Spray 16 GM Bottle NASBOTH SCH (09:59)
== END 2021-10-04 12:15 | disposition home or self-care (01) | DRG 193 ==
LOC: JP.ED 16:12 → JP.MS 17:58
PROVIDERS: ADMIT Internal Medicine; ATTEND Internal Medicine
DX: J18.1 Lobar pneumonia, unspecified organism (principal); J18.9 Pneumonia, unspecified organism; M19.90 Unspecified osteoarthritis, unspecified site; J96.01 Acute respiratory failure with hypoxia; Q90.9 Down syndrome, unspecified; H54.7 Unspecified visual loss; R32 Unspecified urinary incontinence; Z86.73 Personal history of transient ischemic attack (TIA), and cerebral infarction without residual deficits; H91.90 Unspecified hearing loss, unspecified ear; K59.09 Other constipation; R62.50 Unspecified lack of expected normal physiological development in childhood; G30.9 Alzheimer's disease, unspecified; F02.80 Dementia in other diseases classified elsewhere, unspecified severity, without behavioral disturbance, psychotic disturbance, mood disturbance, and anxiety; F41.9 Anxiety disorder, unspecified; E03.9 Hypothyroidism, unspecified; Z79.890 Hormone replacement therapy; Z86.19 Personal history of other infectious and parasitic diseases; Z88.0 Allergy status to penicillin; Z79.899 Other long term (current) drug therapy; Z90.89 Acquired absence of other organs; Z20.822 Contact with and (suspected) exposure to COVID-19
CPT/HCPCS: 36415; 80053; 82150; 83605; 83690; 83735; 84145; 85025; 86140; 87040 ×2; 96365; 96375; 99285; J0696; J2930; J7030; U0002; 71045; 71045-26; 80048; 81001; 82947; 83880; 84484; 94640; 97162-GP; 97530-GP; A9270-GY; J0456; J1650; J2920; J7042; J7050; J7620

== ENCOUNTER 2022-01-12 11:19 | Inpatient (IN) | payer MEDICARE, MEDICAID ==
[2022-01-12] MEDS ORDERED: Sodium Chloride 0.9% 1,000 ML IV SCH ×2 (12:15→16:22)
[2022-01-12 12:36] LABS: ESTIMATED GFR 58 mL/min (>60)
[2022-01-12] MEDS ORDERED: cefOXitin 2 GM in Sodium Chloride 0.9% 50 ML IV ONE (12:51)
[2022-01-12] MEDS ORDERED: Ondansetron 4 MG/2 ML SDV IV PRN (16:22)
[2022-01-12] MEDS ORDERED: Sodium Chloride 0.9% 10 ML Syringe FLUSH PRN (16:22)
[2022-01-12] MEDS: Cefepime 2 GM in Sodium Chloride 0.9% 50 ML IV SCH (17:15)
[2022-01-12] MEDS: Enoxaparin 40 MG/0.4 ML Syringe SUBCUT SCH (17:16)
[2022-01-12] MEDS: Levofloxacin/Dextrose 5%-Water 750 MG in Premix Bag 1 BAG IV SCH (18:17)
[2022-01-12] MEDS: Acetaminophen 325 MG Tab PO PRN (18:25)
[2022-01-12] MEDS: Magnesium Oxide 400 MG Tab PO SCH (20:30)
[2022-01-12] MEDS: Benzocaine/Cetylpyridinium/Menthol Lozenge MUCMEM PRN (21:58)
[2022-01-13] MEDS: Albuterol 0.083% 2.5 MG/3 ML Neb Soln NEB PRN (02:26)
[2022-01-13] MEDS: Cefepime 2 GM in Sodium Chloride 0.9% 50 ML IV SCH ×2 (05:59→16:28)
[2022-01-13] MEDS: Acetaminophen 325 MG Tab PO PRN (07:19)
[2022-01-13] MEDS: Levothyroxine 100 MCG Tab PO SCH (07:19)
[2022-01-13] MEDS: Montelukast 10 MG Tab PO SCH (08:13)
[2022-01-13] MEDS: Magnesium Oxide 400 MG Tab PO SCH ×2 (08:13→20:19)
[2022-01-13] MEDS: Cetirizine 10 MG Tab PO SCH (08:13)
[2022-01-13] MEDS: Enoxaparin 40 MG/0.4 ML Syringe SUBCUT SCH (16:28)
[2022-01-13] MEDS: Levofloxacin/Dextrose 5%-Water 750 MG in Premix Bag 1 BAG IV SCH (16:29)
[2022-01-13] MEDS: Benzocaine/Cetylpyridinium/Menthol Lozenge MUCMEM PRN (23:25)
[2022-01-13] MEDS: Melatonin 3 MG Tab PO PRN (23:27)
[2022-01-14] MEDS: Albuterol 0.083% 2.5 MG/3 ML Neb Soln NEB PRN (00:03)
[2022-01-14] MEDS: Cefepime 2 GM in Sodium Chloride 0.9% 50 ML IV SCH ×2 (04:51→16:24)
[2022-01-14] MEDS: Montelukast 10 MG Tab PO SCH (08:16)
[2022-01-14] MEDS: Levothyroxine 100 MCG Tab PO SCH (08:16)
[2022-01-14] MEDS: Cetirizine 10 MG Tab PO SCH (08:16)
[2022-01-14] MEDS: Magnesium Oxide 400 MG Tab PO SCH ×2 (08:16→20:09)
[2022-01-14] MEDS: Enoxaparin 40 MG/0.4 ML Syringe SUBCUT SCH (16:24)
[2022-01-14] MEDS: Levofloxacin/Dextrose 5%-Water 750 MG in Premix Bag 1 BAG IV SCH (17:17)
[2022-01-14] MEDS: Melatonin 3 MG Tab PO PRN (20:14)
[2022-01-15] MEDS: Cefepime 2 GM in Sodium Chloride 0.9% 50 ML IV SCH (04:36)
[2022-01-15] MEDS: Levothyroxine 100 MCG Tab PO SCH (08:04)
[2022-01-15] MEDS: Magnesium Oxide 400 MG Tab PO SCH ×2 (08:05→21:00)
[2022-01-15] MEDS: Cetirizine 10 MG Tab PO SCH (08:06)
[2022-01-15] MEDS: Montelukast 10 MG Tab PO SCH (08:06)
[2022-01-15] MEDS: Acetaminophen 325 MG Tab PO PRN (15:27)
[2022-01-15] MEDS: Enoxaparin 40 MG/0.4 ML Syringe SUBCUT SCH (16:37)
[2022-01-15] MEDS: Levofloxacin/Dextrose 5%-Water 750 MG in Premix Bag 1 BAG IV SCH (16:37)
[2022-01-15] MEDS: Melatonin 3 MG Tab PO PRN (20:59)
[2022-01-16] MEDS: Albuterol 0.083% 2.5 MG/3 ML Neb Soln NEB PRN (01:48)
[2022-01-16] MEDS: Levothyroxine 100 MCG Tab PO SCH (07:45)
[2022-01-16 08:05] VITALS: BP 129/51; PULSE 58
[2022-01-16] MEDS: Montelukast 10 MG Tab PO SCH (08:49)
[2022-01-16] MEDS: Cetirizine 10 MG Tab PO SCH (08:50)
[2022-01-16] MEDS: Magnesium Oxide 400 MG Tab PO SCH ×2 (08:51)
== END 2022-01-16 11:00 | disposition home or self-care (01) | DRG 193 ==
LOC: JP.ED 11:19 → JP.ICU 13:25
PROVIDERS: ADMIT Hospitalist; ATTEND Hospitalist
DX: J18.9 Pneumonia, unspecified organism (principal); R09.02 Hypoxemia; J96.01 Acute respiratory failure with hypoxia; Q90.9 Down syndrome, unspecified; H54.7 Unspecified visual loss; H91.90 Unspecified hearing loss, unspecified ear; K59.09 Other constipation; R32 Unspecified urinary incontinence; Z86.73 Personal history of transient ischemic attack (TIA), and cerebral infarction without residual deficits; M19.90 Unspecified osteoarthritis, unspecified site; G30.9 Alzheimer's disease, unspecified; F02.80 Dementia in other diseases classified elsewhere, unspecified severity, without behavioral disturbance, psychotic disturbance, mood disturbance, and anxiety; F41.9 Anxiety disorder, unspecified; E03.9 Hypothyroidism, unspecified; Z86.19 Personal history of other infectious and parasitic diseases; Z79.890 Hormone replacement therapy; Z79.899 Other long term (current) drug therapy; Z88.0 Allergy status to penicillin; Z90.89 Acquired absence of other organs
CPT/HCPCS: 36415; 36600; 71046; 71046-26; 80048; 80053; 82803; 83735; 84145; 85025; 87040; 92610-GN; 94640; 96361; 96365; 99223; 99233; 99238; 99285-25; A9270-GY; J0692; J0694; J1650; J1956; J7030